=== PATIENT | male | born 1965 | race Caucasian/White ===

== ENCOUNTER 2016-09-22 16:36 | Emergency (ER) | payer OTHER ==
[~2016-09-22] VITALS: Ht 172.7 cm; Wt 83.9 kg
[~2016-09-22 16:36] MED LIST: ALPRAZOLAM1 M2 PO; DEXTROAMP-AMPHE20 MG PO
--- NOTE | 2016-09-22 17:05 | ED GENERAL ADULT ---
History of Present Illness General Chief Complaint: ETOH/Drug Related Complaint Stated Complaint: PT FOUND UNCONSCIOUS BY . OD ON HEROINE Source: patient, old records, EMS Exam Limitations: no limitations Vital Signs & Intake/Output Vital Signs & Intake/Output Vital Signs Date Time Temp Pulse Resp B/P Pulse O2 O2 Flow FiO2 Ox Delivery Rate 09/22 2021 95 20 138/78 97 Room Air 09/22 1746 Room Air 09/22 1638 98.3 115 20 123/59 94 Room Air Allergies Coded Allergies: Penicillins (Severe, TONGUE SWELLING 09/15/16) codeine (Intermediate, VOMITING 09/15/16) Reconcile Medications Alprazolam 1 MG TABLET 1 TAB PO TIDPRN ANXIETY (Reported) Dextroamphetamine/Amphetamine (Dextroamp-Amphetamin 20 MG Tab) 20 MG TABLET 1 TAB PO DAILY OCD (Reported) Triage Note: RECEIVED 51 YO MALE BIBA FROM HOME. PT WAS FOUND BY UNCONSCIOUS. CALLED POLICE/911. POLICE WERE ABLE TO ROUSE PT WHO ADMITTED TO TAKING A HALF A BAG OF HEROINE TODAY. NO NARCAN GIVEN. PT PRESENTLY AWAKE AND LAERT, ANSWERING QUESTIONAS APPROPRIATELY. PUPLILS PINPOINT BILAT. Triage Nurses Notes Reviewed? yes Onset: Abrupt Duration: day(s): (1), constant Timing: recent history Injury Environment: home Severity: moderate Severity Numbers: 5 No Modifying Factors: none Associated Symptoms: DENIES HPI: 51-year-old male presents to the emergency room brought in by [facility]. he was found unconscious by his . Police were able to arouse the patient without being given Narcan. On arrival the patient reports attempting to inject a half Vicodin heroine into his hand. The patient was seen here on last week after he overdosed and required Narcan at the time. He states she's been clean up until this time since April. Patient has a past history of substance abuse. Patient denies depression suicidal homicidal ideation. He denies any other drug or alcohol use. On arrival he denies any complaints. Patient declines wishing to speak with crisis Past History Travel History Traveled to [place] past 21 day No Medical History Any Pertinent Medical History? see below for history Neurological: NONE EENT: NONE Cardiovascular: NONE Respiratory: NONE Gastrointestinal: NONE Hepatic: NONE Renal: NONE Musculoskeletal: NONE Psychiatric: anxiety, opioid dependence, ADHD heroin overdose Endocrine: NONE Blood Disorders: NONE Cancer(s): NONE Tetanus Vaccine: Surgical History Surgical History: non-contributory Psychosocial History What is your primary language Latvian Tobacco Use: Current Daily Use Daily Tobacco Use Amount/Type: => 5 Cigarettes daily Illicit Drug Use: heroin Family History Hx Contributory? No Review of Systems Review of Systems Constitutional: Reports: see HPI. All Other Systems: Reviewed and Negative Comments Review of systems: See HPI, All other systems negative. Constitutional, no chills no fever, no malaise no weight loss HEENT: No visual changes no sore throat no congestion Cardiovascular: No chest pain , no palpitation Skin, no rashes, no change in skin Respiratory: No dyspnea no cough no sputum GI: No nausea no vomiting, no diarrhea, : No dysuria Muscle skeletal: No joint pain, no back pain, no neck pain, Neurologic: No numbness no confusion, no headache Psych: No stress no anxiety no depression,. Heme/endocrine: No bruising no bleeding Immunology: No lymphadenopathy Physical Exam Physical Exam General Appearance: well developed/nourished, no apparent distress, alert, awake Comments: Well-developed well-nourished person in no acute distress HEENT: Normal EENT exam; pupils pinpoint and reactive to light, EOMI, HEAD is atraumatic. moist mucous membranes. Neck: Supple, normal range of motion Back: Nontender, no CVA tenderness. Full range of motion Cardiovascular: Regular rate and rhythms no murmurs rubs Respiratory: Chest nontender.There were no bony deformities, no asymmetry. No respiratory distress. Patient speaking in full complete sentences. Breath sounds clear to auscultation bilaterally: NO W/R/R Abdomen: Soft, nontender nondistended, no appreciable organomegaly. Normal bowel sounds. No rebound/guarding, Extremity: No edema, full range of motion of extremities Neuro: Alert oriented x3, motor sensory normal. There were no obvious focal neurologic abnormalities. Skin: No appreciable rash on exposed skin, skin is warm and dry. Psych: Mood and affect is normal, memory and judgment is normal. Core Measures ACS in differential dx? No CVA/TIA Diagnosis: No Severe Sepsis Present: No Septic Shock Present: No Progress Differential Diagnoses I considered the following diagnoses in my evaluation of the patient: Intoxication and overdose electrode abnormality Plan of Care: Orders Procedure Date/time Status URINE DRUG SCREEN FOR ER ONLY 09/22 1705 Complete ETHANOL 09/22 170 Complete CBC WITHOUT DIFFERENTIAL 09/22 1704 Complete BASIC METABOLIC PANEL 09/22 170 Complete Laboratory Tests 09/22/16 1920: Urine Opiates Screen 1790.00, Methadone Screen > 735 H, Barbiturate Screen < 60 , Ur Phencyclidine Scrn < 6.00, Amphetamines Screen > 1450 H, U Benzodiazepines Scrn > 800 H, Urine Cocaine Screen < 50, Urine Cannabis Screen < 5.00 09/22/16 1742: Anion Gap 11, Estimated GFR > 60, BUN/Creatinine Ratio 12.0, Glucose 109 H, Calcium 9.1, CBC w Diff NO MAN DIFF REQ, RBC 5.03, MCV 82.1, MCH 27.8, RDW 13.6, MPV 7.9, Gran % 83.6 H, Lymphocytes % 11.0 L, Monocytes % 4.8, Eosinophils % 0.3, Basophils % 0.3, Absolute Granulocytes 13.4 H, Absolute Lymphocytes 1.8, Absolute Monocytes 0.8 H, Absolute Eosinophils 0.1, Absolute Basophils 0.1, PUBS MCHC 33.8, Serum Alcohol < 10.0 Patient awake alert and oriented 3 denies any symptoms. Discussed with and plan of care labs ordered old records reviewed. Patient is agreement with plan he is calm and cooperative at this time declining at this time to speak with crisis CASE D/W DR PANDYA 1800 FAMILY AT BEDSIDE ON REPEAT EVAL PT RESTING IN NAD, [facility] 09/22/2016 7:08:43 PM patient awake alert oriented 3 resting comfortably discussed with them at length of his lab results hemodynamically stable. We'll continue to monitor 09/22/2016 8:17:33 PM patient walking around ER steady stable gait. His family will watch him this evening a PLAN discussed initially began all of his lab results. Case was discussed with Dr. Bower. They'll feel comfortable plan he states he is going to follow-up with the rehabilitation that he's been in before in [place] tomorrow to get help. He is not suicidal, does not wish to spaek with crisis, ambulatory with steady gait on discharge (SUSANNE SAWYER,OBI) Initial ED EKG: none Departure Departure Time of Disposition: 2025 Disposition: HOME OR SELF CARE Condition: Stable Clinical Impression Primary Impression: Opiate abuse, episodic Secondary Impressions: Amphetamine abuse, Benzodiazepine abuse Referrals: PAPO CASEY MD (PCP/Family) Referred to [facility] as new patient No Additional Instructions: FOLLOW UP WITH DETOX LIST PROVIDED. Departure Forms: Customer Survey General Discharge Information Critical Care Note Critical Care Note Critical Care Time: non-applicable
[2016-09-22 17:48] LABS: ABSOLUTE BASOPHIL COUNT 0.1 /CUMM (0.0-0.2); ABSOLUTE EOSINOPHIL COUNT 0.1 /CUMM (0.0-0.7); ABSOLUTE GRANULOCYTE CT 13.4 /CUMM (1.4-6.5); ABSOLUTE LYMPH COUNT 1.8 /CUMM (1.2-3.4); ABSOLUTE MONOCYTE COUNT 0.8 /CUMM (0.10-0.60); BASOPHIL % 0.3 % (0.0-2.0); EOSINOPHIL % 0.3 % (0-5); GRANULOCYTE % 83.6 % (42.2-75.2); HEMATOCRIT 41.3 % (42-52); MEAN CORPUSCULAR HGB 27.8 PG (27.0-31.0); MEAN CORPUSCULAR HGB CONC 33.8 G/DL (33.0-37.0); MEAN CORPUSCULAR VOLUME 82.1 FL (80.0-94.0); MEAN PLATELET VOLUME 7.9 FL (7.4-10.4); PLATELET COUNT 296 /CUMM (130-400); RBC DISTRIBUTION WIDTH 13.6 % (11.5-14.5); RED BLOOD CELL CT 5.03 /CUMM (4.70-6.10)
[2016-09-22 20:22] VITALS: BP 138/78
== END 2016-09-22 20:23 ==
LOC: ERH 16:36
PROVIDERS: Physician Assistant Medical
DX: F11.10 Opioid abuse, uncomplicated (principal); F15.10 Other stimulant abuse, uncomplicated; F13.10 Sedative, hypnotic or anxiolytic abuse, uncomplicated
CPT/HCPCS: 80307; G0480

== ENCOUNTER 2016-10-02 16:44 | Emergency (ER) | payer OTHER ==
[~2016-10-02] VITALS: Ht 172.7 cm; Wt 83.9 kg
--- NOTE | 2016-10-02 16:51 | ED PSYCHIATRIC COMPLAINT ---
History of Present Illness General Chief Complaint: ETOH/Drug Related Complaint Stated Complaint: FOUND UNRESPONSIVE BY [facility] RESPONDED WITH NARCAN Source: patient, old records, EMS Exam Limitations: no limitations Vital Signs & Intake/Output Vital Signs & Intake/Output Vital Signs Date Time Temp Pulse Resp B/P Pulse O2 O2 Flow FiO2 Ox Delivery Rate 10/02 1912 98.6 86 18 126/84 98 Room Air 10/02 1657 98.8 101 20 147/77 96 Room Air Allergies Coded Allergies: Penicillins (Severe, TONGUE SWELLING 09/15/16) codeine (Intermediate, VOMITING 09/15/16) Reconcile Medications Alprazolam 1 MG TABLET 1 TAB PO TIDPRN ANXIETY (Reported) Dextroamphetamine/Amphetamine (Dextroamp-Amphetamin 20 MG Tab) 20 MG TABLET 1 TAB PO DAILY OCD (Reported) Triage Nurses Notes Reviewed? yes Onset: Abrupt Duration: minute(s): (FEW) Timing: single episode today Severity: severe HPI: This is a 51-year-old male presents by EMS from home for chief complaint of unresponsive after using IV heroin. He was given 2 doses of intranasal Narcan without relief and then had a dose of IV Narcan with good improvement. History of multiple overdoses in the last few weeks. Denies feeling suicidal. He states that just needed to go away for rehabilitation again. Denies using any other drugs. Denies any alcohol. He is awake alert and oriented 3. Oxygen saturation is 95%. He is a one pack per day smoker. He states his last detox was in 2017 years ago. Past History Travel History Traveled to [place] past 21 day No Medical History Any Pertinent Medical History? see below for history Neurological: NONE EENT: NONE Cardiovascular: NONE Respiratory: NONE Gastrointestinal: NONE Hepatic: NONE Renal: NONE Musculoskeletal: NONE Psychiatric: anxiety, opioid dependence, ADHD heroin overdose Endocrine: NONE Blood Disorders: NONE Cancer(s): NONE Tetanus Vaccine: Surgical History Surgical History: non-contributory Psychosocial History What is your primary language Swiss Family History Hx Contributory? No Review of Systems Review of Systems Constitutional: Denies: chills, fever. EENTM: Reports: no symptoms. Respiratory: Denies: cough, short of breath. Cardiovascular: Denies: chest pain, palpitations, peripheral edema. GI: Denies: abdominal pain. Genitourinary: Reports: no symptoms. Musculoskeletal: Reports: no symptoms. Skin: Reports: no symptoms. Neurological/Psychological: Reports: anxiety. Denies: confusion, depressed, headache. Hematologic/Endocrine: Denies: bruising, bleeding, polyuria, polydipsia. Immunologic/Allergic: Denies: splenectomy. All Other Systems: Reviewed and Negative Physical Exam Physical Exam General Appearance: well developed/nourished, alert, awake, mild distress Head: atraumatic Eyes: Bilateral: PERRL, EOMI. Ears, Nose, Throat: normal pharynx, normal ENT inspection, hearing grossly normal Neck: normal inspection, supple Respiratory: normal breath sounds Cardiovascular: regular rate/rhythm Gastrointestinal: soft, non-tender Extremities: normal range of motion Neurological/Psychiatric: no motor/sensory deficits, awake, agitated, normal mood/affect, calm Appearance/Memory/Insight: appropriate insight, neat Behavoir/Eye Contact/Speech: cooperative, normal speech, good eye contact Thoughts/Hallucinations: no apparent hallucination Skin: intact, normal color, warm/dry SAD PERSONS Done? patient not suicidal Progress Differential Diagnosis: HEROIN ABUSE, OPIATE DEPENDENCE Plan of Care: Orders Procedure Date/time Status Telemetry/[employer] 10/02 165 Active NARCAN GIVEN IN FIELD WITH GOOD EFFECT. WILL CONTINUE TO MONITOR, IV FLUIDS ORDERED. 6:15 PM FEELS WELL, NO HYPOXIA. WILL FOLLOW UP WITH OUTPATIENT DETOX FACILITIES. NO SI. (YA PATEL,SOLANGE) Departure Departure Time of Disposition: 1844 Disposition: HOME OR SELF CARE Condition: Stable Clinical Impression Primary Impression: Heroin overdose Referrals: PAPO CASEY MD (PCP/Family) Additional Instructions: Follow-up with list of outpatient detox facilities as well as with [facility] as you intended. Return as needed. Departure Forms: Customer Survey General Discharge Information
[2016-10-02 19:13] VITALS: BP 126/84
== END 2016-10-02 19:12 ==
LOC: ERH 16:44
DX: T40.1X1A Poisoning by heroin, accidental (unintentional), initial encounter (principal)

== ENCOUNTER 2016-12-10 14:02 | Emergency (ER) | payer OTHER ==
[~2016-12-10] VITALS: Ht 172.7 cm; Wt 83.9 kg
--- NOTE | 2016-12-10 14:18 | ED PSYCHIATRIC COMPLAINT ---
History of Present Illness General Chief Complaint: ETOH/Drug Related Complaint Stated Complaint: BIBA ?OD Source: patient, EMS Exam Limitations: no limitations Vital Signs & Intake/Output Vital Signs & Intake/Output Vital Signs Date Time Temp Pulse Resp B/P Pulse O2 O2 Flow FiO2 Ox Delivery Rate 12/10 1700 96.2 72 18 128/75 95 Room Air 12/10 1404 98.0 90 16 140/83 96 Room Air ED Intake and Output 12/11 0000 12/10 1200 Intake Total Output Total Balance Patient 185 lb Weight Allergies Coded Allergies: Penicillins (Severe, TONGUE SWELLING 09/15/16) codeine (Intermediate, VOMITING 09/15/16) Reconcile Medications Alprazolam 1 MG TABLET 1 TAB PO TIDPRN ANXIETY (Reported) Dextroamphetamine/Amphetamine (Dextroamp-Amphetamin 20 MG Tab) 20 MG TABLET 1 TAB PO DAILY OCD (Reported) Triage Note: BIBA FROM HOME, PER EMS, FOUND PT UNRESPONSIVENE AFTER HE INJECTED HIMSELF WITH 1 BAG OF HEROIN. WAS GIVEN 2 MG NARCAN BY PD, ANOTHER 2 MG IM BY EMS. PRESENTLY AWAKE, NO RESPIRATORY DISTRESS. STATES THIS WAS THE FIRST TIME HE USED HEROIN SINCE QUITTING IN SEPTEMBER OF 2016. CO-OPERATIVE. PLACED ON MONITOR, SR. Triage Nurses Notes Reviewed? yes Onset: Abrupt Duration: minute(s): (few) Timing: single episode today Severity: severe HPI: 51 year-old brought in by EMS after being found unresponsive by . He admitted to injecting 1 bag of heroin. He was given 2 doses of Narcan in the field with good effect. Now presents awake alert and oriented. Last used in September and he states he detoxed himself. No SI/HI. He states he used because he "likes it". Denies any other substance use. Past History Travel History Traveled to [place] past 21 day No Medical History Any Pertinent Medical History? see below for history Neurological: NONE EENT: NONE Cardiovascular: NONE Respiratory: NONE Gastrointestinal: NONE Hepatic: NONE Renal: NONE Musculoskeletal: NONE Psychiatric: anxiety, opioid dependence, ADHD heroin overdose-multipe Endocrine: NONE Blood Disorders: NONE Cancer(s): NONE Tetanus Vaccine: Surgical History Surgical History: non-contributory Psychosocial History What is your primary language Hungarian Tobacco Use: Current Daily Use Daily Tobacco Use Amount/Type: => 5 Cigarettes daily ETOH Use: occasional use Family History Hx Contributory? No Review of Systems Review of Systems Constitutional: Denies: chills, fever. EENTM: Reports: no symptoms. Respiratory: Denies: cough, short of breath. Cardiovascular: Denies: chest pain. GI: Denies: abdominal pain. Genitourinary: Reports: no symptoms. Musculoskeletal: Reports: no symptoms. Skin: Reports: no symptoms. Neurological/Psychological: Reports: emotional problems. Denies: anxiety, confusion. Hematologic/Endocrine: Denies: bruising, bleeding, polyuria, polydipsia. Immunologic/Allergic: Denies: splenectomy. All Other Systems: Reviewed and Negative Physical Exam Physical Exam General Appearance: well developed/nourished, mild distress Head: atraumatic Eyes: Bilateral: PERRL, EOMI, other (PUPILS 2/3 MM BILATERAL). Ears, Nose, Throat: normal pharynx, normal ENT inspection, hearing grossly normal Neck: normal inspection, supple Respiratory: normal breath sounds Cardiovascular: regular rate/rhythm Gastrointestinal: soft, non-tender Extremities: normal range of motion Neurological/Psychiatric: no motor/sensory deficits, awake, alert Appearance/Memory/Insight: appropriate appearance, neat Behavoir/Eye Contact/Speech: cooperative, normal speech, good eye contact Thoughts/Hallucinations: no apparent hallucination Skin: intact, normal color, warm/dry SAD PERSONS Done? patient not suicidal Progress Differential Diagnosis: HEROIN OVERDOSE, OPIATE DEPENDENCE Plan of Care: Laboratory Tests 12/10/16 1429: Methadone Screen Cancelled, Barbiturate Screen Cancelled, Ur Phencyclidine Scrn Cancelled, Amphetamines Screen Cancelled, U Benzodiazepines Scrn Cancelled, Urine Cocaine Screen Cancelled, Urine Cannabis Screen Cancelled Patient observed for 3 hours. No increased sedation. Patient denies SI/HI. Will discharge for outpatient detox. (YA PATEL,SOL[place]) Departure Departure Disposition: HOME OR SELF CARE Condition: Stable Clinical Impression Primary Impression: Heroin overdose Referrals: PAPO CASEY MD (PCP/Family) Additional Instructions: Follow up with the list of outpatient detox facilities. Departure Forms: Customer Survey General Discharge Information
[2016-12-10 17:00] VITALS: BP 128/75
== END 2016-12-10 17:15 ==
LOC: ERH 14:02
DX: T40.1X1A Poisoning by heroin, accidental (unintentional), initial encounter (principal)
CPT/HCPCS: 80307

== ENCOUNTER 2017-01-20 08:36 | Emergency (ER) | payer OTHER ==
[~2017-01-20] VITALS: Ht 172.7 cm; Wt 85.7 kg
--- NOTE | 2017-01-20 09:05 | ED NECK/BACK PAIN COMPLAINT ---
History of Present Illness General Chief Complaint: Abdominal Pain/Flank Pain Stated Complaint: R SIDED BACK/FLANK Source: patient Exam Limitations: no limitations Vital Signs & Intake/Output Vital Signs & Intake/Output Vital Signs Date Time Temp Pulse Resp B/P B/P Pulse O2 O2 Flow FiO2 Mean Ox Delivery Rate 01/20 1228 97.9 74 18 146/70 98 Room Air 01/20 1025 98.2 80 18 151/85 98 01/20 0847 97.7 89 20 141/87 95 Room Air Allergies Coded Allergies: Penicillins (Severe, TONGUE SWELLING 09/15/16) codeine (Intermediate, VOMITING 09/15/16) Reconcile Medications Alprazolam 1 MG TABLET 1 TAB PO TIDPRN ANXIETY (Reported) Cyclobenzaprine HCl 10 MG TABLET 1 TAB PO TID SPASMS Dextroamphetamine/Amphetamine (Dextroamp-Amphetamin 20 MG Tab) 20 MG TABLET 1 TAB PO QPM OCD (Reported) Meloxicam (Mobic) 15 MG TABLET 1 TAB PO DAILY pain Triage Note: C/O RIGHT SIDED BACK SPASMS SINCE FRIDAY STATES PAIN IS RADIATING INTO RIGHT KIDNEY AREA. STATES HX OF KIDNEY STONE AND THIS FEELS LIKE THAT Triage Nurses Notes Reviewed? yes Onset: Abrupt Duration: day(s): (FEW), constant, continues in ED Timing: recent history Quality/Severity: moderate, severe Method of Injury: unknown Loss of Consciousness: no loss of consciousness HPI: 51-year-old male comes into emergency room with complaints of right-sided back pain is been going on for the past 3 days. Sharp. Worse with any range of motion. Some associated abdominal pain. Denies any changes in bowel movement. Denies any fever chills vomiting. There is no complaints of chest pain or shortness of breath. Patient does admit to a history of heroin use. He reports that he did sniff A Percocet 3 days ago because the pain was so severe. Denies any urinary symptoms or prior history of pain like this in the past. History of lumbar fusion. Denies any abdominal surgeries. (JAY GILES) Past History Travel History Traveled to [place] past 21 day No Medical History Any Pertinent Medical History? see below for history Neurological: NONE EENT: NONE Cardiovascular: NONE Respiratory: NONE Gastrointestinal: NONE Hepatic: NONE Renal: NONE Musculoskeletal: NONE Psychiatric: anxiety, opioid dependence, ADHD heroin overdose-multipe Endocrine: NONE Blood Disorders: NONE Cancer(s): NONE Tetanus Vaccine: Surgical History Surgical History: spinal fusion (LUMBAR) Psychosocial History What is your primary language Turkish Tobacco Use: Current Daily Use Daily Tobacco Use Amount/Type: => 5 Cigarettes daily ETOH Use: occasional use Illicit Drug Use: denies illicit drug use Family History Hx Contributory? No (JAY GILES) Review of Systems Review of Systems Constitutional: Reports: no symptoms. Eyes: Reports: no symptoms. Ears, Nose, Throat, Mouth: Reports: no symptoms. Respiratory: Reports: no symptoms. Cardiovascular: Reports: no symptoms. Gastrointestinal/Abdominal: Reports: no symptoms. Musculoskeletal: Reports: see HPI. Skin: Reports: no symptoms. Neurological/Psychological: Reports: no symptoms. All Other Systems: Reviewed and Negative (JAY GILES) Physical Exam Physical Exam General Appearance: well developed/nourished, mild distress Head: atraumatic Eyes: Bilateral: normal appearance. Ears, Nose, Throat, Mouth: hearing grossly normal, moist mucous membrane Neck: normal inspection, full range of motion Respiratory: normal breath sounds, no respiratory distress Cardiovascular: regular rate/rhythm Gastrointestinal: soft, non-tender Back: normal inspection, muscle spasm Extremities: normal range of motion Motor: Deficit L4 Right: No Deficit L4 Left: No Deficit L5 Right: No Deficit L5 Left: No Deficit S1 Right: No Neurologic/Psych: awake, alert, oriented x 3, normal mood/affect Skin: intact, normal color, warm/dry (JAY GILES) Progress Differential Diagnosis: AAA, aortic dissection, C spine injury, carotid dissection, cauda equina syn, herniated disc, myofascial strain, pyelo/UTI, sciatica, spinal cord inj, thoracic outlet syn, T/L spine injury, ureterolithiasis, CHOLECYSTITIS Plan of Care: Orders Procedure Date/time Status URINALYSIS 01/20 900 Complete LIPASE 01/20 900 Complete COMPREHENSIVE METABOLIC PANEL 01/20 900 Complete CBC WITHOUT DIFFERENTIAL 01/20 900 Complete Laboratory Tests 01/20/17 1101: Urinalysis LIGHT H, Urine Color YEL, Urine Clarity CLDY H, Urine pH 6.0, Ur Specific [place] 1.025, Urine Protein TRACE H, Urine Ketones NEG, Urine Nitrite NEG, Urine Bilirubin NEG@ICTO, Urine Urobilinogen 0.2, Ur Leukocyte Esterase NEG , Ur Microscopic SEDIMENT EXAMINED, Urine RBC 5-10 H, Urine WBC 1-3 H, Ur Epithelial Cells RARE, Urine Bacteria FEW H, Granular Casts RARE H, Urine Mucus MANY H, Urine Hemoglobin MOD H, Urine Glucose NEG 01/20/17 0909: Anion Gap 12, Estimated GFR > 60, BUN/Creatinine Ratio 12.5, Glucose 123 H, Calcium 9.9, Total Bilirubin 0.9, AST 19, ALT 23, Alkaline Phosphatase 71, Total Protein 7.9, Albumin 4.5, Globulin 3.4, Albumin/Globulin Ratio 1.3, Lipase 74, CBC w Diff NO MAN DIFF REQ, RBC 5.36, MCV 83.0, MCH 27.8, RDW 13.5, MPV 8.7, Gran % 82.3 H, Lymphocytes % 10.9 L, Monocytes % 6.2, Eosinophils % 0.2, Basophils % 0.4, Absolute Granulocytes 12.1 H, Absolute Lymphocytes 1.6, Absolute Monocytes 0.9 H, Absolute Eosinophils 0, Absolute Basophils 0.1, PUBS MCHC 33.5 Diagnostic Imaging: Viewed by Me: CT Scan. Discussed w/RAD: CT Scan. Radiology Impression: SERVICE DATE: 01/20/17 EXAM TYPE: CAT - CT ABD & PELVIS W/O IV CONTRAS EXAMINATION: CT ABDOMEN AND PELVIS WITHOUT CONTRAST CLINICAL INFORMATION: Right flank pain COMPARISON: October 282005 CT scan TECHNIQUE: Multidetector volumetric imaging was performed from the superior aspect of the liver through the pubic symphysis. Sagittal and coronal reformatted images were obtained on the technologist's workstation. DLP: 373.47 mGy-cm FINDINGS: LUNG BASES: There are linear densities at the posterior lung bases, right more than left which could represent atelectasis versus a scar. LIVER, GALLBLADDER, AND BILIARY TREE: The noncontrast images of abdomen demonstrate the liver is normal in size and parenchymal density without intrahepatic biliary ductal dilatation or hepatic focal lesion. The gallbladder is contracted. PANCREAS: Unremarkable. SPLEEN: Unremarkable. ADRENAL GLANDS: Unremarkable. KIDNEYS AND URETERS: The kidneys are normal in size, shape, and attenuation. No hydronephrosis, hydroureter, or calculi seen. No perinephric stranding. BLADDER: The urinary bladder is partially full. No bladder stone. No perivesical fat stranding. GASTROINTESTINAL TRACT: The stomach, duodenum, small and large bowel are unremarkable. The appendix is visualized. The appendix measures about 7 mm in diameter, upper normal limits. The lumen of the appendix contains fluid density. No appendicolith is seen. No periappendiceal inflammatory changes to suggest acute appendicitis. ABDOMINAL WALL: No significant hernia is appreciated. LYMPH NODES: Normal. VASCULAR: Unremarkable. PELVIC VISCERA: The prostate and seminal vesicles are unremarkable. OSSEOUS STRUCTURES: Degenerative changes at L4-L5 intervertebral disc space level with sclerotic changes of the adjacent endplates and vacuum disc phenomenon and posterior disc bulge noted. IMPRESSION: 1. No urinary stone. No hydronephrosis. 2. Contracted gallbladder without radiodense gallstones. 3. No CT evidence of acute appendicitis. Clinical correlation advised. DICTATED BY: DONTA ALBARRAN MD DATE/TIME DICTATED:01/20/17932 TRUCK GUARD:TERA DATE/TIME TRANSCRIBED:01/20/17932 (JAY GILES) Departure Departure Disposition: HOME OR SELF CARE Condition: Stable Clinical Impression Primary Impression: Back pain Referrals: PATIENT HAS NO PRIMARY CARE DR (PCP/Family) Additional Instructions: Taking Mobic and Flexeril as prescribed. Follow-up with primary care doctor. Return if any concerns worsening symptoms. Please go over all results of today's visit with your primary care doctor. Contact your primary care doctor to let them know you were here in the emergency room. There may be nonspecific findings which may not be related to your visit today here in the emergency room but may require further evaluation and chronic monitoring by your primary care doctor. If you had a laceration today the chance of foreign body always remains. You should follow-up with your primary care doctor for recheck in 3-5 days for a wound check. If you had an x-ray done there is a chance that a fracture could have been missed on initial read and you should follow-up with your primary care doctor for repeat x-rays if symptoms persist. If your blood pressure was elevated here in the emergency room please have rechecked by her primary care doctor within the next 48 hours by your primary care doctor. If you were prescribed a narcotic here in the emergency room or any type of controlled substances you're not allowed to drive while taking this medication or operate any type of heavy machinery. Narcotics can make you feel lightheaded dizziness nausea and can cause constipation. You may need to pickup driver a stool softener. Thank you for choosing [facility] emergency room. Please return to the emergency room immediately if you have any other concerns worsening of symptoms. Departure Forms: Customer Survey General Discharge Information Prescriptions: Current Visit Scripts Meloxicam (Mobic) 1 TAB PO DAILY #15 TAB Cyclobenzaprine HCl 1 TAB PO TID #20 TAB Comments 01/20/2017 1:58:00 PM Patient feels better after medications here. There is no acute findings. Patient was told to go over results with his primary care doctor. Return if any concerns. Pain is likely more consistent with musculoskeletal pain. Possibility of a passed kidney stone is also something to consider. At this time patient has been resting comfortably in no apparent distress in the room. Pain is worse with range of motion as well making IT more consistent with muscular pain. (JAY GILES) PA/SUPERINTENDENT REFUSE DISPOSAL Co-Sign Statement Statement: ED Attending supervision documentation- [] I saw and evaluated the patient. I have also reviewed all the pertinent lab results and diagnostic results. I agree with the findings and the plan of care as documented in the PA's/SUPERINTENDENT REFUSE DISPOSAL's documentation. X] I have reviewed the ED Record and agree with the PA's/SUPERINTENDENT REFUSE DISPOSAL's documentation. [] Additions or exceptions (if any) to the PAs/SUPERINTENDENT REFUSE DISPOSAL's note and plan are summarized below: [] (FAVIO SAMANIEGO DO
[2017-01-20 09:27] LABS: ABSOLUTE BASOPHIL COUNT 0.1 /CUMM (0.0-0.2); ABSOLUTE EOSINOPHIL COUNT 0 /CUMM (0.0-0.7); ABSOLUTE GRANULOCYTE CT 12.1 /CUMM (1.4-6.5); ABSOLUTE LYMPH COUNT 1.6 /CUMM (1.2-3.4); ABSOLUTE MONOCYTE COUNT 0.9 /CUMM (0.10-0.60); BASOPHIL % 0.4 % (0.0-2.0); EOSINOPHIL % 0.2 % (0-5); GRANULOCYTE % 82.3 % (42.2-75.2); HEMATOCRIT 44.5 % (42-52); MEAN CORPUSCULAR HGB 27.8 PG (27.0-31.0); MEAN CORPUSCULAR HGB CONC 33.5 G/DL (33.0-37.0); MEAN PLATELET VOLUME 8.7 FL (7.4-10.4); PLATELET COUNT 260 /CUMM (130-400); RBC DISTRIBUTION WIDTH 13.5 % (11.5-14.5); RED BLOOD CELL CT 5.36 /CUMM (4.70-6.10); WHITE BLOOD CELL COUNT 14.7 /CUMM (4.8-10.8)
--- NOTE | 2017-01-20 09:49 | CT SCAN REPORT ---
EXAMINATION: CT ABDOMEN AND PELVIS WITHOUT CONTRAST CLINICAL INFORMATION: Right flank pain COMPARISON: October 282005 CT scan TECHNIQUE: Multidetector volumetric imaging was performed from the superior aspect of the liver through the pubic symphysis. Sagittal and coronal reformatted images were obtained on the technologist's workstation. DLP: 373.47 mGy-cm FINDINGS: LUNG BASES: There are linear densities at the posterior lung bases, right more than left which could represent atelectasis versus a scar. LIVER, GALLBLADDER, AND BILIARY TREE: The noncontrast images of abdomen demonstrate the liver is normal in size and parenchymal density without intrahepatic biliary ductal dilatation or hepatic focal lesion. The gallbladder is contracted. PANCREAS: Unremarkable. SPLEEN: Unremarkable. ADRENAL GLANDS: Unremarkable. KIDNEYS AND URETERS: The kidneys are normal in size, shape, and attenuation. No hydronephrosis, hydroureter, or calculi seen. No perinephric stranding. BLADDER: The urinary bladder is partially full. No bladder stone. No perivesical fat stranding. GASTROINTESTINAL TRACT: The stomach, duodenum, small and large bowel are unremarkable. The appendix is visualized. The appendix measures about 7 mm in diameter, upper normal limits. The lumen of the appendix contains fluid density. No appendicolith is seen. No periappendiceal inflammatory changes to suggest acute appendicitis. ABDOMINAL WALL: No significant hernia is appreciated. LYMPH NODES: Normal. VASCULAR: Unremarkable. PELVIC VISCERA: The prostate and seminal vesicles are unremarkable. OSSEOUS STRUCTURES: Degenerative changes at L4-L5 intervertebral disc space level with sclerotic changes of the adjacent endplates and vacuum disc phenomenon and posterior disc bulge noted. IMPRESSION: 1. No urinary stone. No hydronephrosis. 2. Contracted gallbladder without radiodense gallstones. 3. No CT evidence of acute appendicitis. Clinical correlation advised.
[2017-01-20] MEDS ORDERED: CYCLOBENZAPRINE10 M1 PO (11:31)
[2017-01-20] MEDS ORDERED: MOBIC15 M1 PO (11:31)
[2017-01-20 12:28] VITALS: BP 146/70
== END 2017-01-20 12:28 ==
LOC: ERH 08:36
PROVIDERS: Physician Assistant Medical
DX: M54.9 Dorsalgia, unspecified (principal)
CPT/HCPCS: 74176; 81001; 96372; J1885

== ENCOUNTER 2017-02-26 16:18 | Inpatient (IN) | payer OTHER ==
[~2017-02-26] VITALS: Ht 172.7 cm; Wt 81.6 kg
[~2017-02-26 16:18] MED LIST changes: +CYCLOBENZAPRINE10 M1 PO; +MOBIC15 M1 PO
--- NOTE | 2017-02-26 16:35 | NUR ---
PT COMPLAINS OF 2 WEEKS OF BILATERAL FLANK PAIN AND ABD PAIN, STATES THAT HE HAS EPISODES OF CONSTIPATION , TOOK MEDS AND MOVED HIS BOWELS BUT STATES THAT IT WAS LOOSE. DENIES N/V. AFEBRILE.
--- NOTE | 2017-02-26 16:47 | NUR ---
LABS DRAWN AND SENT BY THIS [facility] BLUE, SST, LAV, PINK, PINA
[2017-02-26 16:51] LABS: ABSOLUTE BASOPHIL COUNT 0 /CUMM (0.0-0.2); ABSOLUTE EOSINOPHIL COUNT 0.1 /CUMM (0.0-0.7); ABSOLUTE GRANULOCYTE CT 9.3 /CUMM (1.4-6.5); ABSOLUTE LYMPH COUNT 2.7 /CUMM (1.2-3.4); ABSOLUTE MONOCYTE COUNT 0.9 /CUMM (0.10-0.60); BASOPHIL % 0.4 % (0.0-2.0); EOSINOPHIL % 0.9 % (0-5); GRANULOCYTE % 71.3 % (42.2-75.2); HEMATOCRIT 39.2 % (42-52); MEAN CORPUSCULAR HGB CONC 32.5 G/DL (33.0-37.0); MEAN CORPUSCULAR VOLUME 80.1 FL (80.0-94.0); MEAN PLATELET VOLUME 7.4 FL (7.4-10.4); PLATELET COUNT 395 /CUMM (130-400); RBC DISTRIBUTION WIDTH 13.3 % (11.5-14.5); WHITE BLOOD CELL COUNT 13.1 /CUMM (4.8-10.8)
[2017-02-26] MEDS ORDERED: OXYCODONE HCL30 M1 PO (17:31)
[2017-02-26] MEDS ORDERED: ALEVE220 M2 PO (17:32)
--- NOTE | 2017-02-26 17:36 | ED GENERAL ADULT ---
History of Present Illness General Chief Complaint: Abdominal Pain/Flank Pain Stated Complaint: ABD PAIN Source: patient Exam Limitations: no limitations Vital Signs & Intake/Output Vital Signs & Intake/Output Vital Signs Date Time Temp Pulse Resp B/P B/P Pulse O2 O2 Flow FiO2 Mean Ox Delivery Rate 02/26 1632 97.1 102 18 130/83 98 Room Air Allergies Coded Allergies: Penicillins (Severe, TONGUE SWELLING 09/15/16) codeine (Intermediate, VOMITING 09/15/16) Reconcile Medications Alprazolam 1 MG TABLET 1 TAB PO TIDPRN ANXIETY (Reported) Dextroamphetamine/Amphetamine (Dextroamp-Amphetamin 20 MG Tab) 20 MG TABLET 1 TAB PO QPM OCD/ADHD (Reported) Naproxen Sodium (Aleve) 220 MG TABLET 1 TAB PO DAILY PAIN (Reported) Oxycodone HCl 30 MG TABLET 1 TAB PO ONCE PAIN (Reported) Triage Note: PT COMPLAINS OF 2 WEEKS OF BILATERAL FLANK PAIN AND ABD PAIN, STATES THAT HE HAS EPISODES OF CONSTIPATION , TOOK MEDS AND MOVED HIS BOWELS BUT STATES THAT IT WAS LOOSE. DENIES N/V. AFEBRILE. Triage Nurses Notes Reviewed? yes Onset: Abrupt Duration: day(s): Timing: recent history HPI: PATIENT TREATED WITH IVF, IV TORADOL, IV ZOFRAN 51-year-old man presents to the emergency department complaining of right sided back pain. He says he had the pain for several weeks but it's become intense over the last 72 hours. He denies lower extremity weakness or fever. He also says the pain is radiating to the right side of his abdomen now. He does admit to intravenous drug use but has not used for the past 3 weeks. The onset of the symptoms have been abrupt, the duration has been approximately 2 weeks, the severity is significant as his symptoms required him to come to the emergency department for care. Past History Travel History Traveled to [place] past 21 day No Medical History Any Pertinent Medical History? see below for history Neurological: NONE EENT: NONE Cardiovascular: NONE Respiratory: NONE Gastrointestinal: NONE Hepatic: NONE Renal: NONE Musculoskeletal: NONE Psychiatric: anxiety, opioid dependence, ADHD heroin overdose-multipe Endocrine: NONE Blood Disorders: NONE Cancer(s): NONE Tetanus Vaccine: Surgical History Surgical History: spinal fusion (LUMBAR) Psychosocial History What is your primary language Micronesian Tobacco Use: Current Daily Use Daily Tobacco Use Amount/Type: => 5 Cigarettes daily ETOH Use: denies use Illicit Drug Use: denies illicit drug use Family History Hx Contributory? No Review of Systems Review of Systems Constitutional: Denies: fever. EENTM: Denies: visual changes. Respiratory: Denies: short of breath. Cardiovascular: Denies: chest pain. GI: Reports: abdominal pain. Genitourinary: Reports: no symptoms. Musculoskeletal: Reports: back pain. Skin: Denies: rash. Neurological/Psychological: Denies: headache. Hematologic/Endocrine: Reports: no symptoms. Immunologic/Allergic: Reports: no symptoms. Physical Exam Physical Exam General Appearance: well developed/nourished, alert, awake, comfortable, mild distress Head: atraumatic, normal appearance Eyes: Bilateral: normal appearance, PERRL, EOMI. Ears, Nose, Throat: normal pharynx, normal ENT inspection Neck: normal inspection, supple, full range of motion Respiratory: normal breath sounds, chest non-tender, no respiratory distress Cardiovascular: regular rate/rhythm Peripheral Pulses: 4+ radial (R), 4+ radial (L) Gastrointestinal: soft, tenderness Back: normal inspection, muscle spasm, mild rightright sided paralumbar tenderness. Thoracic vertebral tenderness at around T12. Extremities: normal inspection, normal range of motion Neurologic/Psych: no motor/sensory deficits, awake, alert, oriented x 3 Skin: intact, normal color, warm/dry Core Measures ACS in differential dx? No CVA/TIA Diagnosis: No Severe Sepsis Present: No Septic Shock Present: No Progress Differential Diagnoses I considered the following diagnoses in my evaluation of the patient: [Kidney stone, gallstone, diverticulitis, pneumonia] Plan of Care: Orders Procedure Date/time Status Regular Diet 02/27 B Active MRI-THORACIC W & W/O WILLOW 02/27 07 Active CBC WITHOUT DIFFERENTIAL 02/27 06 Active Pathway - chart 02/26 223 Active House Staff 02/27 2232 Active PHYSICIAN CONSULT 02/27 2232 Active Hemoccult 02/26 222 Active Patient Data 02/26 215 Active Admit to inpatient 02/26 2129 Active Vital Signs 02/26 2129 Active Code Status 02/26 2129 Active LACTIC ACID 02/26 1936 Complete URINALYSIS 02/26 1636 Active LACTIC ACID 02/26 1636 Complete COMPREHENSIVE METABOLIC PANEL 02/26 1636 Complete CBC WITHOUT DIFFERENTIAL 02/26 1636 Complete VTE Mechanical Prophylaxis 02/26 UNK Active Current Medications Sig/Niru Start time Last Medication Dose Stop Time Status Admin Polyethylene Glycol 17 GM DAILY 02/27 1000 UNVr (Miralax) Heparin Sodium 5,000 UNIT Q8 02/27 06 UNVr (Porcine) Acetaminophen 650 MG Q6P PRN 02/26 2245 UNVr (Tylenol) Ibuprofen 600 MG Q6P PRN 02/26 2245 UNVr (Motrin) Ketorolac 15 MG Q6P PRN 02/26 224 UNVr Tromethamine (Toradol) Senna/Docusate Sodium 1 TAB BID 02/26 2230 UNVr (Senokot S) Laboratory Tests 02/26/172233: Urine Color Pending, Urine Clarity Pending, Urine pH Pending, Ur Specific [place] Pending, Urine Protein Pending, Urine Ketones Pending, Urine Nitrite Pending, Urine Bilirubin Pending, Urine Urobilinogen Pending, Ur Leukocyte Esterase Pending, Ur Microscopic Pending, Urine Hemoglobin Pending, Urine Glucose Pending 02/26/172041: Lactic Acid 1.0 02/26/17 1644: Anion Gap 13, Estimated GFR > 60, BUN/Creatinine Ratio 13.3, Glucose 97, Lactic Acid 0.7, Calcium 10.3 H, Total Bilirubin 0.7, AST 17, ALT 30, Alkaline Phosphatase 93, Total Protein 7.5, Albumin 3.9, Globulin 3.6, Albumin/Globulin Ratio 1.1, CBC w Diff NO MAN DIFF REQ, RBC 4.90, MCV 80.1, MCH 26.0 L, RDW 13.3 , MPV 7.4, Gran % 71.3, Lymphocytes % 20.4 L, Monocytes % 7.0, Eosinophils % 0.9, Basophils % 0.4, Absolute Granulocytes 9.3 H, Absolute Lymphocytes 2.7, Absolute Monocytes 0.9 H, Absolute Eosinophils 0.1, Absolute Basophils 0, PUBS MCHC 32.5 L Initial ED EKG: none Departure Departure Disposition: STILL A PATIENT Condition: Stable Clinical Impression Primary Impression: Abdominal pain Secondary Impressions: Flank pain Referrals: PATIENT HAS NO PRIMARY CARE DR (PCP/Family) Departure Forms: Customer Survey General Discharge Information Admission Note Spoke With: LAILA EM MD Documentation of Exam: Documentation of any treatments & extenuating circumstances including Concerns Regarding Discharge (functional status, medication knowledge or non-compliance, living conditions, etc.) that warrant an admission rather than observation: [The patient needs admission for inpatient MRI of the spine, consider neurosurgical consultation, further evaluation of paraspinal infiltrating mass] Spoke to Dr. Donohue will see patient in the a.m. recommended getting an MRI of the cervical thoracic and lumbar spine PATIENT: GEOFFREY VIRGEN SR PRESENT AGE: 51 PATIENT ACCOUNT NO: [id number] : 66 LOCATION: [facility] ORDERING PHYSICIAN: FAVIO SAMANIEGO DO SERVICE DATE: 02/26/17 EXAM TYPE: CAT - CT ABD & PELVIS W/O IV CONTRAS EXAMINATION: CT ABDOMEN AND PELVIS WITHOUT CONTRAST CLINICAL INFORMATION: Right-sided flank pain. COMPARISON: CT from 01/20/2017. TECHNIQUE: Multidetector volumetric imaging was performed from the superior aspect of the liver through the pubic symphysis. Sagittal and coronal reformatted images were obtained on the technologist's workstation. DLP: 322.6 mGy-cm FINDINGS: There is a new poorly defined right paraspinal soft tissue mass centered at the T9-T10 levels with erosion of the right lateral aspects of the T9 and T10 vertebral bodies. The lesion measures approximately 3 x 4 cm in the axial plane and nearly 5 cm craniocaudal. Erosive changes extend across the lateral aspect of the T9-T10 disc space. There is no clear intracanal extension of the mass. The unopacified solid visceral organs appear normal. There is no hydronephrosis or nephrolithiasis. The ureters are normal in caliber. The bladder is mildly distended without wall thickening. No bulky retroperitoneal adenopathy is seen. The abdominal aorta is normal in caliber. There is no evidence of a bowel obstruction. The appendix is normal. The prostate gland appears normal on this noncontrast study. Stable moderate spondylosis at L4-L5. IMPRESSION: New right paraspinal soft tissue mass centered at T9-T10 levels with partial erosion into the T9-T10 vertebral body cortices. Findings are highly suspicious for metastatic disease. An infectious etiology is felt to be less likely given imaging appearance. An MRI targeting the spine without and with contrast could be considered in follow-up for further characterization. This lesion would also be amenable to biopsy with image guidance. Findings discussed with Dr. Samaniego at 7:50 PM on 02/26/2017. DICTATED BY: DAYAMI VASQUEZ MD DATE/TIME DICTATED:02/26/171940 EDUCATION ADMINISTRATOR:TERA DATE/TIME TRANSCRIBED:02/26/171940 CONFIDENTIAL, DO NOT COPY WITHOUT APPROPRIATE AUTHORIZATION. <Electronically signed in Other Vendor System> SIGNED BY: DAYAMI VASQUEZ MD 1999 Critical Care Note Critical Care Note Critical Care Time: non-applicable
--- NOTE | 2017-02-26 18:52 | RADIOLOGY REPORT ---
EXAMINATION: CHEST 2 VIEWS CLINICAL INFORMATION: Flank pain. COMPARISON: 04/26/2016. TECHNIQUE: PA and lateral views of the chest were obtained. FINDINGS: The cardiac silhouette is not enlarged. The mediastinal and hilar contours are unremarkable. There are neither pleural effusions nor pneumothoraces. There are no consolidations. The osseous structures are unremarkable. IMPRESSION: No evidence for acute disease.
--- NOTE | 2017-02-26 20:00 | CT SCAN REPORT ---
EXAMINATION: CT ABDOMEN AND PELVIS WITHOUT CONTRAST CLINICAL INFORMATION: Right-sided flank pain. COMPARISON: CT from 01/20/2017. TECHNIQUE: Multidetector volumetric imaging was performed from the superior aspect of the liver through the pubic symphysis. Sagittal and coronal reformatted images were obtained on the technologist's workstation. DLP: 322.6 mGy-cm FINDINGS: There is a new poorly defined right paraspinal soft tissue mass centered at the T9-T10 levels with erosion of the right lateral aspects of the T9 and T10 vertebral bodies. The lesion measures approximately 3 x 4 cm in the axial plane and nearly 5 cm craniocaudal. Erosive changes extend across the lateral aspect of the T9-T10 disc space. There is no clear intracanal extension of the mass. The unopacified solid visceral organs appear normal. There is no hydronephrosis or nephrolithiasis. The ureters are normal in caliber. The bladder is mildly distended without wall thickening. No bulky retroperitoneal adenopathy is seen. The abdominal aorta is normal in caliber. There is no evidence of a bowel obstruction. The appendix is normal. The prostate gland appears normal on this noncontrast study. Stable moderate spondylosis at L4-L5. IMPRESSION: New right paraspinal soft tissue mass centered at T9-T10 levels with partial erosion into the T9-T10 vertebral body cortices. Findings are highly suspicious for metastatic disease. An infectious etiology is felt to be less likely given imaging appearance. An MRI targeting the spine without and with contrast could be considered in follow-up for further characterization. This lesion would also be amenable to biopsy with image guidance. Findings discussed with Dr. Alfredo at 7:50 PM on 02/26/2017.
--- NOTE | 2017-02-26 20:12 | NUR ---
lactic drawn and sent to lab
--- NOTE | 2017-02-26 21:51 | NUR ---
PATIENT TO BE ADMITTED. RESTING QUIETLY IN HALLWAY BED AREA W/ SPOUSE. PATIENT IS W/O C/O AT THIS TIME.
--- NOTE | 2017-02-26 21:58 | NUR ---
PT MOVED TO ROOM 11 REPORT RECEIVED SURGEON IN ROOM FOR EVAL.
--- NOTE | 2017-02-26 22:00 | NUR ---
REPORT GIVEN TO RIZWANA HERNANDEZ
--- NOTE | 2017-02-26 22:26 | History & Physical ---
HEYDI PATEL,[facility] [place] 2223: General Information and HPI MD Statement: I have seen and personally examined GEOFFREY CALDWELL and documented this H&P. The patient is a 51 year old M who presented with a patient stated chief complaint of back pain. Source of Information: patient, family, old records Exam Limitations: no limitations History of Present Illness: Mr. Caldwell is a 51 y/o M with PMHx of history of IVDA c/b multiple episodes of heroin overdose, ADHD and L4-L5 laminectomy who presents with progressively worsening back pain of 6.5 weeks duration. Patient was in his usual state of health until 01/09 when he was bitten by a tick in his right middle back, which was subsequently removed by his partner. Shortly afterwards he developed pain in his right back and flank with radiation to his abdomen. Patient describes pain as an ache and states that it feels like a "big muscle spasm" in his back. Pain is associated with bloating and gassy feeling in his stomach. Pain progressively worsened over the next few days and patient subsequently presented to the ED on 01/20. CT Abdomen/Pelvis was performed which was unrevealing. Patient was given Flexeril and Toradol with some improvement of the pain and subsequently discharged home. However pain has progressively worsened over the next few weeks following that episode. Currently pain is constant according to the patient and gets up to 10/10 in intensity at times. Patient has also developed constipation starting three weeks prior to current presentation. He denies nausea, vomiting, blood in the stool and changes in stool. He reports weight loss of approximately 6 lbs over the past 3 weeks, noting that he has been careful with what he eats because of the bloating and abdominal pain. He states that his appetite has been good however. He denies fever, chills, leg numbness, tingling or weakness and bladder/bowel incontinence. 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 He also notes pesticide exposure. Currently he is unemployed. He has a history of opioid dependence and IV heroin use. He was in remission for 16 years up until 2016 when he relapsed. Since then he has had five presentations to the [place] ED for heroin overdose, the most recent one on 12/10. He admits to using IV drugs 3 weeks prior to current admission. Allergies/Medications Allergies: Coded Allergies: Penicillins (Severe, TONGUE SWELLING 09/15/16) codeine (Intermediate, VOMITING 09/15/16) Home Med list Alprazolam 1 MG TABLET 1 TAB PO TIDPRN ANXIETY (Reported) Dextroamphetamine/Amphetamine (Dextroamp-Amphetamin 20 MG Tab) 20 MG TABLET 1 TAB PO QPM OCD/ADHD (Reported) Naproxen Sodium (Aleve) 220 MG TABLET 1 TAB PO DAILY PAIN (Reported) Oxycodone HCl 30 MG TABLET 1 TAB PO ONCE PAIN (Reported) Past History Travel History Traveled to [place] past 21 day No Medical History Neurological: NONE EENT: NONE Cardiovascular: NONE Respiratory: NONE Gastrointestinal: NONE Hepatic: NONE Renal: NONE Musculoskeletal: NONE Psychiatric: anxiety, opioid dependence, ADHD, heroine overdose, OCD Endocrine: NONE Blood Disorders: NONE Cancer(s): NONE Tetanus Vaccine: Surgical History Surgical History: L4-L5 laminectomy Past Family/Social History Family History Relations & Conditions if any FATHER, , Age 60+; Cause: Heart attack. FH: Crohn's disease FH: heart attack MOTHER, ; Cause: Stomach cancer. FH: stomach cancer UNCLE FH: colon cancer Psychosocial History Where do you live? Home Who Do You Live With? spouse Services at Home: None Primary Language: Maori Smoking Status: Current Everyday Smoker (1 PPD Smoker-30 Pack Years) ETOH Use: occasional use Illicit Drug Use: history of IV heroin use Functional Ability ADLs Independent: dressing, eating, toileting, bathing. Ambulation: independent IADLs Independent: shopping, housework, finances, food prep, telephone, transportation , medication admin. Employment History Employment Unemployed Profession/Employer Multiple jobs Review of Systems Review of Systems Constitutional: Denies: chills, fever. EENTM: Reports: no symptoms. Cardiovascular: Reports: no symptoms. Respiratory: Reports: no symptoms. GI: Reports: abdominal pain, bloating, constipation. Denies: bowel incontinence, nausea, bloody stool, changes in stool, vomiting. Genitourinary: Reports: no symptoms, see HPI. Denies: hematuria. Musculoskeletal: Reports: back pain. Skin: Denies: jaundice. Neurological/Psychological: Reports: no symptoms. Denies: numbness, paresthesia, tingling, unable to move lower ext. Hematologic/Endocrine: Reports: no symptoms. Immunologic/Allergic: Reports: no symptoms. All Other Systems: Reviewed and Negative Exam & Diagnostic Data Last 24 Hrs of Vital Signs/I&O Vital Signs Date Time Temp Pulse Resp B/P B/P Pulse O2 O2 Flow FiO2 Mean Ox Delivery Rate 02/26 1632 97.1 102 18 130/83 98 Room Air Physical Exam General Appearance Alert, Oriented X3, No Acute Distress Skin No Rashes HEENT Atraumatic, Mucous Membr. moist/pink Neck Supple Cardiovascular Regular Rate, Normal S1, Normal S2, No Murmurs, Gallops, Rubs Lungs Clear to Auscultation Abdomen Soft, No Tenderness, Positive Bowel Sounds Neurological Strength at 5/5 X4 Ext, Sensation Intact, Reflexes 2+ Extremities No Clubbing, No Cyanosis, No Edema Rectal Guiac Negative, Normal Sphincter Tone Last 24 Hrs of Labs/Socrates: Laboratory Tests 02/26/174: Urine Color YEL, Urine Clarity CLEAR, Urine pH 5.5, Ur Specific Doyle 1.025, Urine Protein NEG, Urine Ketones NEG, Urine Nitrite NEG, Urine Bilirubin NEG, Urine Urobilinogen 0.2, Ur Leukocyte Esterase NEG, Ur Microscopic EXAM NOT REQUIRED, Urine Hemoglobin NEG, Urine Glucose NEG 02/26/17 2042: Lactic Acid 1.0 02/26/17 1644: Anion Gap 13, Estimated GFR > 60, BUN/Creatinine Ratio 13.3, Glucose 97, Lactic Acid 0.7, Calcium 10.3 H, Total Bilirubin 0.7, AST 17, ALT 30, Alkaline Phosphatase 93, Total Protein 7.5, Albumin 3.9, Globulin 3.6, Albumin/Globulin Ratio 1.1, CBC w Diff NO MAN DIFF REQ, RBC 4.90, MCV 80.1, MCH 26.0 L, RDW 13.3 , MPV 7.4, Gran % 71.3, Lymphocytes % 20.4 L, Monocytes % 7.0, Eosinophils % 0.9, Basophils % 0.4, Absolute Granulocytes 9.3 H, Absolute Lymphocytes 2.7, Absolute Monocytes 0.9 H, Absolute Eosinophils 0.1, Absolute Basophils 0, PUBS MCHC 32.5 L Diagnostic Data CXR Results No evidence for acute disease. Other Results CT ABDOMEN/PELVIS W/O IV CONTRAST: New right paraspinal soft tissue mass centered at T9-T10 levels with partial erosion into the T9-T10 vertebral body cortices. Findings are highly suspicious for metastatic disease. An infectious etiology is felt to be less likely given imaging appearance. An MRI targeting the spine without and with contrast could be considered in follow-up for further characterization. This lesion would also be amenable to biopsy with image guidance. Assessment/Plan Assessment: Mr. Caldwell is a 51 y/o M with PMHx of history of IVDA c/b multiple episodes of heroin overdose, ADHD and L4-L5 laminectomy who presents with right back and flank pain, with CT scan revealing new right paraspinal soft tissue mass centered at T9-T10. #Paraspinal soft tissue mass: CT Abdomen/Pelvis with right paraspinal soft tissue mass centered at T9-T10 with partial erosion into T9-T10 vertebral body cortices, highly suspicious for metastatic disease, with an infectious etiology felt to be less likely. Of note, mass was not present on CT from one week prior (01/20). Associated symptoms include right flank/back pain, abdominal discomfort, bloating and constipation. No evidence for cord compression including saddle anesthesia, leg weakness/numbness or bladder/bowel incontinence. Labs remarkable for anemia (H/H 12.7/39.2) which was not present one month ago, Cr of 1.2, elevated from baseline of 0.8-1 and elevated inflammatory markers (ESR 45 and CRP >9). Differential includes malignancy (either metastasis from another site or a primary tumor) given patient's multiple risk factors including smoking, asbestos and pesticide exposure, family history of cancer and new-onset anemia and infectious etiology such as spinal epidural abscess given history of IV drug use and leukocytosis. Onset of pain coincides with tick bite but significance of this is unclear. * Admit to General Medicine. * MRI of the thoracic spine W/WO WILLOW ordered for further characterization of the mass. * Review imaging with the radiologist as the mass was not present on prior CT Abdomen/Pelvis on 01/20. * Neurosurgery consulted. Appreciate their recs. * Neurochecks Q4H. * Check BCx, UCx and sputum Cx. * ID consult to be placed to evaluate for infectious etiology such as spinal epidural abscess. * Patient will eventually require IR-guided aspiration or biopsy of the paraspinal mass. * Hold pharmacologic anti-coagulation in anticipation for possible IR-guided procedure. * Consider oncology consult. * Age-appropriate cancer screening for prostate and colon cancer should be eventually performed. * Toradol 15 mg IV Q6H PRN for severe pain (scale 7-10), Motrin 600 mg PO Q6H PRN for moderate pain (scale 4-6) and Tylenol 650 mg PO Q6H PRN for mild pain ( scale 1-3). * Scheduled Miralax and Senna for constipation. #Polysubstance abuse: History of IVDA and heroin use with multiple hospitalizations for OD. Was in remission for 16 years but relapsed in 2016. Last IV heroin 3 weeks ago. * Consider psych and social work consult. Diet: Regular DVT PPx: ALPs CODE: FULL As Ranked By This Provider Problem List: 1. Right flank pain 2. Paraspinal mass 3. Nicotine dependence 4. IV drug user 5. Right-sided back pain Core Measures/Miscellaneous Acute Coronary Syndrome ACS Diagnosis: No Cerebrovascular Accident CVA/TIA Diagnosis: No Congestive Heart Failure CHF Diagnosis: No VTE (View Protocol) VTE Risk Factors: Age > 40, Smoking [facility] prophylaxis d/t: No contraindications No VTE Pharm Prophylaxis d/t: Surgical contraindication (Possible biopsy in the AM) VTE Diagnosis: No VTE Type: NONE VTE Confirmed by (Test): NONE Sepsis (View Protocol) Severe Sepsis Present: No Septic Shock Septic Shock Present: No Miscellaneous Documentation [facility] Physician: PATIENT HAS NO PRIMARY CARE DR Patient sees these Specialists Psychiatrist Cristiana Parsons MD Level of Patient Care: General Medicine SIVANOBI STANTON 02/26/17 2037: Resident Review Statement Resident Statement: examined this patient, discussed with leadership program internship, agreed with leadership program internship, reviewed images Other Findings: This is a 51 years old man with past medical history of ADHD, OCD, polysubstance abuse with multiple trips to the ER for overdose who is presenting with bilateral flank pain that started on January 12. The shunt is very particular about the date because 3 days prior had been bitten by a tick area the pain continued to persist and on January 20 was seen at the [place] ER given pain medication only with moderate relief. He reports that it's an aching pain most of the time 10 out of 10, radiating to the front part of the abdomen but no direct radiation to the lower limbs, he denies any weakness or incontinence of urine or fecal, he has no numbness or tingling sensation. The patient volunteers that he has lost weight around 6 pounds since the start of symptoms which is not deliberate. For the past 3 weeks the patient has been having constipation 1-2 bowel movements a week which is well below his average of at least one bowel motion a day, he has been experiencing bowel gases with preponderance to burp to reduce the fullness without any success. Trivedi denies any change in stool, blood in stool or urine, yellowish discoloration of the skin. He volunteers family history of cancer as with colon in the ankle and stomach cancer in the mother. 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 He denies any chest pain, shortness of breath, palpitation, nausea or vomiting, urinary symptoms Vital signs on arrival afebrile 97.1, tachycardic 102 respiration of 18 blood pressure 130/80, 98% on room air Physical exam: Patient seated comfortably not in acute distress cooperative Chest: Clear lungs bilaterally Abdomen: No palpable mass, no tenderness negative Pereira's sign Back: Paraspinal tenderness more on the right, no palpable mass no skin changes Rectal: Normal sphincter tone, normal stool consistency in the vault, negative guaiac test Extremities: No cyanosis clubbing or edema Neurological: Intact sensation across all dermatomes from T6 all the way down, normal knee reflexes and normal power bilaterally Labs: H&H 12.7/39.2, WBC 13.1, MCV 80.1, creatinine 1.2 on January 20 was 0.8 Urine toxicology positive for opiates and cannabis and amphetamines Imaging: New right paraspinal soft tissue mass centered at T9-T10 levels with partial erosion into the T9-T10 vertebral body cortices. Findings are highly suspicious for metastatic disease. Assessment and plan This is a 51 years old man with polysubstance abuse who is presenting with 6 weeks history of bilateral flank pain that has been getting worse, not aggravated with movement and associated with weight loss of around 6 pounds and anemia hemoglobin 12.7 from his historical value of around 14.7 and borderline MCV of 80.1. This patient refuses recent use of IV drug of abuse but given his extended polysubstance abuse history is hard to rule out and despite lacking features suggestive of infection he might be having a paraspinal abscess from IV drug abuse though imaging is showing that to be less likely. He has significant family history of colon cancer and stomach cancer for the mother with significant exposure carcinogenic materials Problem list Vertebral mass probably metastatic malignancy/infectious process Constipation Admitting the patient to general medicine floor Will hold pharmacological DVT prophylaxis and keep the patient on ALPS ONLY Pain control with Tylenol, ibuprofen and Toradol Patient has a possibility of infectious process will benefit from ID review Neurosurgery consult placed for further management of the vertebral mass MRI of the vertebral spine with and without contrast to further characterize the mass Please review previous images of CT of the abdomen and pelvis on the vertebral section to rule out any possibility of this must been present on January 20 when he had a previous CT scan This patient should be discharged with clear instruction to have colonoscopy done he is 51 years old, has borderline anemia with hemoglobin of 12.7 and is having a mass which we are not sure if his metastasis plus his strong family history of cancer he needs to be screened as soon as possible. Bowel regimen with MiraLAX and senna S Iron studies Guaiac all stools Patient is full code MANAV PATEL, [facility] 02/27/17 0458: Attending MD Review Statement Attending Statement Attending MD Statement: examined this patient, discuss w/resident/PA/BOOK PUBLISHER, agreed w/resident/PA/BOOK PUBLISHER Attending Assessment/Plan: 51 yo M smoker with h/o IVDA, polysubstance abuse with multiple ER visits for heroin OD, ADHD, OCD, L4-5 laminectomy, is here with c/o right sided upper back pain. Symptoms started around January 12, after he sustained a tick bite (tick removed in whole by his partner). He was seen in the ER on January 20 for similar complaints, CT was not impressive and he was discharged on flexeril and meloxicam for back pain. However, symptoms worsened over past 3 days, with associated constipation and 6 lb weight loss over 3 weeks. He denies urinary or fecal incontinence, paresthesias or paralysis, no sensory deficits, no shooting pains down the LE. No fever/chills, cough, diarrhea, ROS was negative. Strong family h/o cancer Mother had stomach cancer, Uncle had colon cancer. He last used IV drugs 3 weeks ago, reports taking roxicodone off the street to help with the pain. He was in remission for 16 years but relapsed in 2016. VSS. Back no spinal tenderness, paraspinal muscle spasm and tenderness around T10 area, tick bite vishal noted. Neuro exam unremarkable, rectal exam: tone good, guaiac neg. No lymphadenopathy. Labs: WBC 13.1, H/H 12.7/39.2, lymphs 20.4, ESR 45, lactic acid normal, Calcium 10.3, CRP > 9.0, UA clear. Utox positive for opiates, methadone, amphetamines, benzos and cannabis. CT abd/pelvis: nothing acute in abdomen, but there is a new right paraspinal soft tissue mass centered at T9-T10 levels with partial erosion into the T9-T10 vertebral body cortices, ? infectious vs. Metastatic disease. CXR neg. 1. Paraspinal mass in this patient with h/o IVDA and recent tick bite ? significance ?tick paralysis but he does not depict typical symptoms. ? metastatic disease of unknown primary vs. Infectiou etiology. GM admit, neurocheks, evaluate mass further with MRI of spine, Neurosurgery consult (Dr. Ye made aware by ER), panculture. Review images with radiologist in AM, as this mass was not seen in CT A/P done on January 20. Check INR, patient will need IR guided biopsy or aspiration of this mass. Consult ID in AM. Pain management. He needs age appropriate screening for colon and prostate cancer. Consider Oncology consult. Smoking cessation counseling done. Consider Psych and social work consult. DVT ppx Alps (in case of need for biopsy, hold heparin products). Full code.
--- NOTE | 2017-02-26 22:40 | NUR ---
PT WOULD LIKE TO WAIT UNTIL HE GOES UPSTAIRS TO CHANGE INTO A GOWN STATES HE IS FREEZING.
--- NOTE | 2017-02-26 23:06 | NUR ---
PT WATCHING TV OFFERS NO COMPLAINTS
--- NOTE | 2017-02-26 23:10 | Admission Certification ---
Admission Certification Certification Statement - As attending physician, I certify that at the time of - admission, based on clinical presentation, severity of - symptoms, need for further diagnostic testing and - therapeutic interventions, and risk of adverse outcomes - without in-hospital treatment, in my clinical assessment, - this patient requires an acute hospital stay for a minimum - of two nights or longer. I have also considered psychsocial - factors such as support system, advanced age, financial - issues, cognitive issues, and failed out-patient treatments, - past re-admission history, safety of patient, and lack of - compliance as applicable. Specific rationale supporting this admission is: 51 yo M with back pain, noted to have a paraspinal mass T9-10, needs further evaluation with MRI, Neurosurgery and ID consult.
--- NOTE | 2017-02-26 23:36 | NUR ---
PT BED ASSIGNMENT 220-2
[2017-02-27 00:24] VITALS: BP 138/90
--- NOTE | 2017-02-27 04:16 | NUR ---
PT ARRIVED TO FLOOR AT 0015 VIA WHEELCHAIR. A&OX3, RA, DENIES SOB, PT IN STREET CLOTHES, REFUSING BLACK AT THIS TIME. STATES ABD/FLANK PAIN IS 7/10. MEDICATED PER EMAR. ORIENTED TO ROOM AND CALLBELL. PT OFFERS NO COMPLAINTS AT THIS TIME.
--- NOTE | 2017-02-27 06:01 | PN- Housestaff ---
See Addendum Subjective Follow-up For: Paraspinal mass Subjective: Patient seen and examined this morning. Admitted last night. Reports back pain under control with current regimen. Denies any sensory deficits, focal weakness, gait imbalance or paresthesia. Also endorses abdominal pain radiating from the back. No recent fever, chills, chest discomfort, palpitations, dyspnea abdominal pain, nausea, vomiting, headache. Review of Systems Constitutional: Reports: see HPI. Objective Last 24 Hrs of Vital Signs/I&O Vital Signs Date Time Temp Pulse Resp B/P B/P Pulse O2 O2 Flow FiO2 Mean Ox Delivery Rate 02/27 625 98.5 73 20 148/90 97 Room Air 02/27 0024 98.0 75 20 138/90 97 Room Air 02/26 2356 96.5 82 18 139/87 98 Room Air 02/26 1632 97.1 102 18 130/83 98 Room Air Intake & Output 02/27 0800 02/27 0000 02/26 1600 Intake Total 1240 Output Total Balance 1240 Intake, IV 1000 Intake, Oral 240 Patient 81.647 kg 81.647 kg Weight Weight Reported by Patient Measurement Method Physical Exam General Appearance: Alert, Oriented X3, Cooperative Other Physical Findings: Skin No Rashes HEENT Atraumatic, Mucous Membr. moist/pink Neck Supple Cardiovascular Regular Rate, Normal S1, Normal S2, No Murmurs, Gallops, Rubs Lungs Clear to Auscultation Abdomen Soft, No Tenderness, Positive Bowel Sounds Neurological Strength at 5/5 X4 Ext, Sensation Intact, Reflexes 2+ Extremities No Clubbing, No Cyanosis, No Edema Rectal Guiac Negative, Normal Sphincter Tone Current Medications: Current Medications Sig/Niru Start time Last Medication Dose Route Stop Time Status Admin Acetaminophen 650 MG Q6P PRN 02/26 2245 AC PO Alprazolam 1 MG TIDPRN PRN 02/26 2315 AC PO 03/05 2314 Heparin Sodium 5,000 UNIT Q8 02/27 06 CAN (Porcine) SC Ibuprofen 600 MG Q6P PRN 02/26 2245 AC PO Ketorolac 15 MG Q6P PRN 02/26 224 AC 02/27 Tromethamine IV 0638 Ketorolac 0 .STK-MED ONE 02/26 1941 DC Tromethamine .ROUTE Ketorolac 30 MG ONCE ONE 02/26 181 DC 02/26 Tromethamine IV 02/26 Non-Formulary 0 SEE ADMIN CRITERIA 02/26 2315 CAN Medication ANY Ondansetron HCl 0 .STK-MED ONE 02/26 1941 DC .ROUTE Ondansetron HCl 4 MG ONCE ONE 02/26 1815 DC 02/26 IV 02/26 Polyethylene Glycol 17 GM DAILY 02/27 1000 AC PO Senna/Docusate Sodium 1 TAB BID 02/26 2230 AC 02/26 PO 2306 Sodium Chloride 1,000 ML BOLUS ONE 02/26 1745 DC 02/26 IV 02/27 1944 175 Last 24 Hrs of Lab/Socrates Results Last 24 Hrs of Labs/Mics: Laboratory Tests 02/26/172233: Urine Opiates Screen 2403.00 H, Methadone Screen > 735 H, Barbiturate Screen < 60, Ur Phencyclidine Scrn < 6.00, Amphetamines Screen > 1450 H, U Benzodiazepines Scrn > 800 H, Urine Cocaine Screen < 50, Urine Cannabis Screen 75.70 H, Urine Color YEL, Urine Clarity CLEAR, Urine pH 5.5, Ur Specific [place] 1.025, Urine Protein NEG, Urine Ketones NEG, Urine Nitrite NEG, Urine Bilirubin NEG, Urine Urobilinogen 0.2, Ur Leukocyte Esterase NEG, Ur Microscopic EXAM NOT REQUIRED, Urine Hemoglobin NEG, Urine Glucose NEG 02/26/172041: Lactic Acid 1.0 02/26/17 1644: Anion Gap 13, Estimated GFR > 60, BUN/Creatinine Ratio 13.3, Glucose 97, Lactic Acid 0.7, Calcium 10.3 H, Total Bilirubin 0.7, AST 17, ALT 30, Alkaline Phosphatase 93, C-Reactive Prot, Quant > 9.0 H, Total Protein 7.5, Albumin 3.9, Globulin 3.6, Albumin/Globulin Ratio 1.1, Total PSA Pending, CBC w Diff NO MAN DIFF REQ, RBC 4.90, MCV 80.1, MCH 26.0 L, RDW 13.3, MPV 7.4, Gran % 71.3, Lymphocytes % 20.4 L, Monocytes % 7.0, Eosinophils % 0.9, Basophils % 0.4, Absolute Granulocytes 9.3 H, Absolute Lymphocytes 2.7, Absolute Monocytes 0.9 H, Absolute Eosinophils 0.1, Absolute Basophils 0, PUBS MCHC 32.5 L, ESR Westergren 45 H Microbiology 02/27 0550 URINE ROUT: Urine Culture - COLB 02/27 0550 LOWER RESP: Respiratory Culture - COLB 02/27 0550 LOWER RESP: Gram Stain - COLB 02/27 0550 BLOOD: Blood Culture - COLB 02/27 0550 BLOOD: Blood Culture - COLB Assessment/Plan Assessment: Mr. Caldwell is a 51 y/o M with PMHx of history of IVDA c/b multiple episodes of heroin overdose, ADHD and L4-L5 laminectomy who presents with right back and flank pain, with CT scan revealing new right paraspinal soft tissue mass centered at T9-T10. #Paraspinal soft tissue mass: Mass seen at T9-T10 on CT abd/pelvis, concerning for metastatic neoplasm vs. epidural abscess in the setting of IV drug use. Although radiographically it looks more like neoplasm, given the fact that this mass was not visible on prior CT (01/20) that was done recently, there is a possibility that it may be an abscess that developed acutely. Patient came in with leukocytosis and ESR of 45 but no other signs of infection. 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 * Vitals per protocol, monitor for SIRS * Monitor CBC, trend WBC - decreasing * MRI of the whole spine for further investigation * Review prior CT abd/pelvis from 01/20 with a radiologist * Neurosurgery (Dr. Ye) consulted, appreciate recs * ID consulted to r/o abscess, appreciate recs * Neurochecks Q4H. * Follow panculture * NPO starting midnight for CT-guided biopsy tomorrow * Check PSA level * GI referral for colonoscopy outpatient * Adequate pain control with Toradol 15 mg IV Q6H PRN for severe pain, Motrin 600 mg PO Q6H PRN for moderate pain, and Tylenol 650 mg PO Q6H PRN for mild pain * Continue bowel regimen for constipation #Polysubstance abuse: Utox positive for opiate, methadone, amphetamine, benzo and cannabis. He carries a hx of IV drug use (including) resulting in multiple admissions for overdose in 2016. He reportedly had been in remission for 16 years until he relapsed in 2016. Last IV heroin use was about 3 weeks ago. * Watch for opiate/benzo w/d * Consider psych and social work consult. # Tobacco dependence * Nicotine patch daily * Smoking cessation counseling provided - Regular (NPO starting midnight) - Mild pain pathway - DVT ppx with ALPs - Full code Problem List: 1. Right flank pain 2. Paraspinal mass 3. Nicotine dependence 4. Abdominal pain 5. Amphetamine abuse 6. Benzodiazepine abuse 7. Opiate abuse, episodic 8. Heroin overdose 9. IV drug user Pain Ratin Pain Location: Back, right flank, abdomen Pain Goal: Pain 4 or less Pain Plan: Moderate pathway Tomorrow's Labs & Rationales: CBC BEP Pain Plan: Moderate pathway Tomorrow's Labs & Rationales: CBC BEP
[2017-02-27 06:25] VITALS: BP 148/90
[2017-02-27 08:27] LABS: ABSOLUTE BASOPHIL COUNT 0.1 /CUMM (0.0-0.2); ABSOLUTE EOSINOPHIL COUNT 0.2 /CUMM (0.0-0.7); ABSOLUTE GRANULOCYTE CT 8.5 /CUMM (1.4-6.5); ABSOLUTE LYMPH COUNT 2.5 /CUMM (1.2-3.4); ABSOLUTE MONOCYTE COUNT 1.1 /CUMM (0.10-0.60); BASOPHIL % 0.4 % (0.0-2.0); EOSINOPHIL % 1.5 % (0-5); HEMATOCRIT 38.7 % (42-52); MEAN CORPUSCULAR HGB 26.3 PG (27.0-31.0); MEAN CORPUSCULAR HGB CONC 32.8 G/DL (33.0-37.0); PLATELET COUNT 339 /CUMM (130-400); RBC DISTRIBUTION WIDTH 13.7 % (11.5-14.5); RED BLOOD CELL CT 4.83 /CUMM (4.70-6.10); WHITE BLOOD CELL COUNT 12.3 /CUMM (4.8-10.8)
[2017-02-27 08:36] LABS: PT 12.6 SEC (9.4-12.5)
--- NOTE | 2017-02-27 09:48 | PN- Student ---
Subjective Subjective: CC: right flank pain HPI: 51 yo male with history of heroin overdose, IVDU, L4-L5 laminectomy, ADHD, and OCD, presented to ER last night for right flank pain. States he had a tick bite, which was removed, 3 days prior pain (01/09/17). Used IV heroin 3 weeks ago due to the pain. Pain originates in right flank and radiates to left flank and to abdomen. He describes it as a sharp pain, like a "back spasm that is twisting" and is constant and continues to increase. Last night, he states he was restless because of the pain but this morning, he rates the pain as a 4/10 after administration of pain medication. Pain is relieved when he brings his legs up to his chest and is worse when eating. Pt is still constipated, not having a bowel movement in the past 3 days. Reports 6 lb weight loss over 3 weeks. Denies fever, nausea, vomiting, headache, chills, night sweats, chest pain, difficulty breathing, numbness, tingling, and weakness down legs. PMHx: Illnesses/conditions: IVDU, ADHD, OCD Current Medications Sig/Niru Start time Last Medication Dose Route Stop Time Status Admin Acetaminophen 650 MG Q6P PRN 02/26 2245 AC PO Alprazolam 1 MG TIDPRN PRN 02/26 2315 AC 02/27 PO 03/05 2314 0948 Heparin Sodium 5,000 UNIT Q8 02/27 0600 CAN (Porcine) SC Ibuprofen 600 MG Q6P PRN 02/265 02/27 PO 0947 Ketorolac 15 MG .STK-MED ONE 02/274 DC Tromethamine IM 02/27 0035 Ketorolac 15 MG Q6P PRN 02/26 2245 AC 02/27 Tromethamine IV 0638 Ketorolac 0 .STK-MED ONE 02/26 1941 DC Tromethamine .ROUTE Ketorolac 30 MG ONCE ONE 02/26 1815 DC 02/26 Tromethamine IV 02/27 1816 193 Nicotine 14 MG DAILY 02/27 1000 AC TOP Non-Formulary 0 SEE ADMIN CRITERIA 02/26 2315 CAN Medication ANY Ondansetron HCl 0 .STK-MED ONE 02/26 1941 DC .ROUTE Ondansetron HCl 4 MG ONCE ONE 02/26 1815 DC 02/26 IV 06/07 1816 1934 Polyethylene Glycol 17 GM DAILY 02/27 1000 AC 02/27 PO 0942 Senna/Docusate Sodium 1 TAB BID 02/26 2230 AC 02/27 PO 0942 Simethicone 80 MG Q4P PRN 02/27 0830 AC 02/27 PO 0947 Sodium Chloride 1,000 ML BOLUS ONE 02/26 1745 DC 02/26 IV 02/26 1944 1752 Allergies: penicillins, codeine Past surgical hx: L4-L5 laminectomy (1993) PCP/specialists: doesn't see a PCP, sees psychiatrist 1x/month Family Hx: Mother - stomach cancer, at age 73 Father - Crohn's, at age 75 from [place] father's side - colon cancer from 1st degree relatives Social Hx: Worked in construction for 16 years, 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 no murmurs Pulm: clear to auscultation. no wheezing, rales, rhonchi Abd: distended, normoactive bowel sounds, tender to palpation in RUQ Back: pain upon palpation of thoracic spine. Negative Pinedo Mo's sign. Extremities: no clubbing, no edema Neuro: 5/5 muscle strength in LE, -straight leg raise, denies numbness, tingling , numbness in LE Diagnostics: CXR: unremarkable CT abdomen/pelvis: New right paraspinal soft tissue mass centered at T9-T10 levels with partial erosion into the T9-T10 vertebral body cortices. Findings are highly suspicious for metastatic disease. Vital Signs Date Time Temp Pulse Resp B/P B/P Pulse O2 O2 Flow FiO2 Mean Ox Delivery Rate 02/27 0625 98.5 73 20 148/90 97 Room Air 02/27 0024 98.0 75 20 138/90 97 Room Air 02/26 2356 96.5 82 18 139/87 98 Room Air 02/26 1632 97.1 102 18 130/83 98 Room Air Intake & Output 02/27 1600 02/27 0800 02/27 0000 Intake Total 1240 Output Total Balance 1240 Intake, IV 1000 Intake, Oral 240 Patient 180 lb 180 lb Weight Weight Reported by Patient Measurement Method Results Results: Laboratory Tests 02/27/17 0738: PT 12.6 H, INR 1.20 H, CBC w Diff NO MAN DIFF REQ, RBC 4.83, MCV 80.0, MCH 26.3 L, RDW 13.7, MPV 8.0, Gran % 69.0, Lymphocytes % 20.2 L, Monocytes % 8.9, Eosinophils % 1.5, Basophils % 0.4, Absolute Granulocytes 8.5 H, Absolute Lymphocytes 2.5, Absolute Monocytes 1.1 H, Absolute Eosinophils 0.2, Absolute Basophils 0.1, PUBS MCHC 32.8 L 02/26/17 2234: Urine Opiates Screen 2403.00 H, Methadone Screen > 735 H, Barbiturate Screen < 60, Ur Phencyclidine Scrn < 6.00, Amphetamines Screen > 1450 H, U Benzodiazepines Scrn > 800 H, Urine Cocaine Screen < 50, Urine Cannabis Screen 75.70 H, Urine Color YEL, Urine Clarity CLEAR, Urine pH 5.5, Ur Specific [place] 1.025, Urine Protein NEG, Urine Ketones NEG, Urine Nitrite NEG, Urine Bilirubin NEG, Urine Urobilinogen 0.2, Ur Leukocyte Esterase NEG, Ur Microscopic EXAM NOT REQUIRED, Urine Hemoglobin NEG, Urine Glucose NEG 02/26/17 2042: Lactic Acid 1.0 02/26/17 1644: Anion Gap 13, Estimated GFR > 60, BUN/Creatinine Ratio 13.3, Glucose 97, Lactic Acid 0.7, Calcium 10.3 H, Total Bilirubin 0.7, AST 17, ALT 30, Alkaline Phosphatase 93, C-Reactive Prot, Quant > 9.0 H, Total Protein 7.5, Albumin 3.9, Globulin 3.6, Albumin/Globulin Ratio 1.1, Total PSA Pending, CBC w Diff NO MAN DIFF REQ, RBC 4.90, MCV 80.1, MCH 26.0 L, RDW 13.3, MPV 7.4, Gran % 71.3, Lymphocytes % 20.4 L, Monocytes % 7.0, Eosinophils % 0.9, Basophils % 0.4, Absolute Granulocytes 9.3 H, Absolute Lymphocytes 2.7, Absolute Monocytes 0.9 H, Absolute Eosinophils 0.1, Absolute Basophils 0, PUBS MCHC 32.5 L, ESR Westergren 45 H Microbiology 02/27 0855 BLOOD: Blood Culture - RECD 02/27 0750 BLOOD: Blood Culture - CAN Cancelled: Quantity not sufficient for both blood culture bottles. 02/27 0735 BLOOD: Blood Culture - RECD 02/27 0550 URINE ROUT: Urine Culture - COLB 02/27 0550 LOWER RESP: Respiratory Culture - COLB 02/27 0550 LOWER RESP: Gram Stain - COLB Assessment/Plan Assessment: 51 yo male with PMHx of heroine overdose, IVDU, L4-L5 laminectomy, ADHD, OCD presented to ER last night (02/26/17) for worsening right flank pain of 3 weeks. PE significant for pain upon palpation of lower back. CT of abd/pelvis shows right paraspinal soft tissue mass at T9-T10 with partial erosion into vertical body cortices. Differential: 1. Metastatic spinal tumor * Spinal epidural abscess secondary to IVDU. Other risk factors include: DM, HIV , alcoholism, bactermia. * Potential primary tumor sites in lungs (31%), GI tract (9%), prostate (8%) * Increase in serum Ca2+ could suggest cancer. 2. Osteomyelitis * Worsening back pain at night, unintentional weight loss, hx of IVDU and elevated CRP * Hx of IVDU, gram negative organisms are causative agents 3. Hematagenous infection * Infectious cause due hx of tick bite and increase in WBC Plan: 1. Paraspinal mass * Consult neurosurgery * MRI of total spine to characterize mass with guided CT biopsy tomorrow to characterize cells. * CT chest to r/o primary lung tumor. * Obtain PSA level to r/o primary prostate tumor. * Obtain DAVID test to r/o HIV infection. * Recheck vitals and labs - WBC, Hgb, Hct, Ca2+, INR, CRP * Manage pain with IV NSAIDs and tylenol PRN * Consult ID. Panculture to r/o infectious cause or determine causative agent and begin antibiotic therapy (vancomycin + cefepime). Lyme antibody to r/o Lyme. 2. Constipation * Start bowel regimen for continued constipation and start simethicone for bloating 3. IVDU * Psych consult * Continue seeing psychiatrist 1x/month 4. Chronic conditions - ADHD, OCD * Continue home medications Other: -Add nicotine patch due to tobacco dependence -Outpatient colonoscopy due to positive family hx -See a PCP annually
--- NOTE | 2017-02-27 11:18 | Cons- Neurosurgical ---
General Information and HPI Consulting Request Date of Consult: 02/27/17 Requested By: MANVA PATEL,LAILA Reason for Consult: Spinal lesion at T9-T10 Source of Information: patient, old records Exam Limitations: no limitations History of Present Illness: 51-year-old right-handed white male, chronic user of opiates including heroin, long-standing history of IVDA, multiple episodes of heroin I overdose, started in January 09 having noticed that she had a tick bites on his back by January 12 she was having significant complain of spasms along his basket back he was seen in the emergency room here on January 20 medicated and sent home since about mid January he has had bilateral belt-like pain down on his chest and a sensation of bloating he has come in because of worsening pain he denies any weakness or tingling in his legs or any difficulty voiding Allergies/Medications Allergies: Coded Allergies: Penicillins (Severe, TONGUE SWELLING 09/15/16) codeine (Intermediate, VOMITING 09/15/16) Home Med List: Alprazolam 1 MG TABLET 1 TAB PO TIDPRN ANXIETY (Reported) Dextroamphetamine/Amphetamine (Dextroamp-Amphetamin 20 MG Tab) 20 MG TABLET 1 TAB PO QPM OCD/ADHD (Reported) Naproxen Sodium (Aleve) 220 MG TABLET 1 TAB PO DAILY PAIN (Reported) Oxycodone HCl 30 MG TABLET 1 TAB PO ONCE PAIN (Reported) Current Medications: Current Medications Sig/Niru Start time Last Medication Dose Route Stop Time Status Admin Acetaminophen 650 MG Q6P PRN 02/26 2245 AC PO Alprazolam 1 MG TIDPRN PRN 02/265 AC 02/27 PO 03/05 2314 0948 Heparin Sodium 5,000 UNIT Q8 02/27 0600 CAN (Porcine) SC Ibuprofen 600 MG Q6P PRN 02/265 AC 02/27 PO 0947 Ketorolac 15 MG .STK-MED ONE 02/27 34 DC Tromethamine IM 02/27 35 Ketorolac 15 MG Q6P PRN 02/26 2245 AC 02/27 Tromethamine IV 0638 Ketorolac 0 .STK-MED ONE 02/26 1941 DC Tromethamine .ROUTE Ketorolac 30 MG ONCE ONE 02/26 1815 DC 02/26 Tromethamine IV 02/27 1816 193 Nicotine 14 MG DAILY 02/27 1000 AC TOP Non-Formulary 0 SEE ADMIN CRITERIA 02/26 2315 CAN Medication ANY Ondansetron HCl 0 .STK-MED ONE 02/26 1941 DC .ROUTE Ondansetron HCl 4 MG ONCE ONE 02/26 1815 DC 02/26 IV 02/26 Polyethylene Glycol 17 GM DAILY 02/27 1000 AC 02/27 PO 0942 Senna/Docusate Sodium 1 TAB BID 02/26 2230 AC 02/27 PO 0942 Simethicone 80 MG Q4P PRN 02/27 830 02/27 PO 0947 Sodium Chloride 1,000 ML BOLUS ONE 02/26 1745 DC 02/26 IV 02/27 1944 175 Past History Medical History Blood Transfusion Hx: No Type of Reaction: Anaphylaxis (none) Neurological: NONE EENT: NONE Cardiovascular: NONE Respiratory: NONE Gastrointestinal: NONE Hepatic: NONE Renal: NONE Musculoskeletal: NONE Psychiatric: anxiety, opioid dependence, ADHD heroine overdose Endocrine: NONE Blood Disorders: NONE Cancer(s): NONE ALLERGY AND IMMUNOLOGY SPECIALIST/Reproductive: NONE (not applicable) Other Medical Hx: ADHD and a lumbar laminectomy at L4-L5 Surgical History Pertinent Surgical History: L4-L5 laminectomy Family History Relations & Conditions If Any: FATHER, , Age 60+; Cause: Heart attack. FH: Crohn's disease FH: heart attack MOTHER, ; Cause: Stomach cancer. FH: stomach cancer UNCLE FH: colon cancer Psychosocial History Where Do You Live? Home Who Do You Live With? spouse Services at Home: None Primary Language: Azeri Smoking Status: Current Everyday Smoker (1 PPD Smoker-30 Pack Years) ETOH Use: occasional use Illicit Drug Use: history of IV heroin use Living Will? unknown Power of Auto Battery Builder/HCP? unknown Name of POA/HCP: unknown Other Social History: Not relevant Functional Ability ADLs Independent: dressing, eating, toileting, bathing. Ambulation: independent IADLs Independent: shopping, housework, finances, food prep, telephone, transportation , medication admin. Employment History Employment: Unemployed Profession/Employer: Multiple jobs Retired? unknown Review of Systems Review of Systems: Complains of chest pain and a belt-like matter. Has abdominal bloating. Has no weakness in his legs. No difficulty ambulating. Review of Systems Constitutional: Reports: malaise. EENTM: Denies: no symptoms. Cardiovascular: Denies: no symptoms. Respiratory: Denies: no symptoms. GI: Reports: bloating. Genitourinary: Denies: no symptoms. Musculoskeletal: Reports: see HPI. Skin: Denies: no symptoms. Neurological/Psychological: Reports: see HPI. Hematologic/Endocrine: Denies: no symptoms. Immunologic/Allergic: Denies: no symptoms. All Other Systems: Reviewed and Negative Exam & Diagnostic Data Vital Signs and I&O Vital Signs Date Time Temp Pulse Resp B/P B/P Pulse O2 O2 Flow FiO2 Mean Ox Delivery Rate 02/27 0625 98.5 73 20 148/90 97 Room Air 02/27 0024 98.0 75 20 138/90 97 Room Air 02/26 2356 96.5 82 18 139/87 98 Room Air 02/26 1632 97.1 102 18 130/83 98 Room Air Intake & Output 02/27 1600 /08 0800 06/08 0000 / 1600 /07 0800 06/07 0000 Intake Total 1240 Output Total Balance 1240 Intake, IV 1000 Intake, Oral 240 Patient 180 lb 180 lb Weight Weight Reported by Patient Measurement Method Physical Exam: Awake alert oriented 3. Tender to palpation of his thoracic spine. No definite sensory level on his chest. Good motor strength both lower extremities. Sensory examination lower extremities within normal limits. Slightly hyperreflexic at knee and ankle without clonus. Toes indifferent Physical Exam General Appearance: no apparent distress Head: atraumatic Eyes: Bilateral: normal appearance. Ears, Nose, Throat: normal pharynx Neck: supple Respiratory: normal breath sounds Cardiovascular: regular rate/rhythm Gastrointestinal: soft Rectal: normal rectal tone Back: normal inspection, vertebral tenderness, muscle spasm Extremities: normal inspection Neurologic/Psych: no motor/sensory deficits, awake, alert, oriented x 3, normal gait, hyperreflexic activity as described above Cranial Nerves: normal hearing Skin: intact Lymphatic: no anterior cervical luli Reproductive: Normal male genitalia Other Physical Findings: Paraspinous muscle spasm in the thoracolumbar junction Evidence of prior surgery of the lumbar spine Last 24 Hours of Labs: Laboratory Tests 02/27 02/26 0738 2234 Coagulation PT (9.4 - 12.5 SEC) 12.6 H INR (0.90 - 1.17) 1.20 H Hematology CBC w Diff NO MAN DIFF REQ WBC (4.8 - 10.8 /CUMM) 12.3 H RBC (4.70 - 6.10 /CUMM) 4.83 Hgb (14.0 - 18.0 G/DL) 12.7 L Hct (42 - 52 %) 38.7 L MCV (80.0 - 94.0 FL) 80.0 MCH (27.0 - 31.0 PG) 26.3 L RDW (11.5 - 14.5 %) 13.7 Plt Count (130 - 400 /CUMM) 339 MPV (7.4 - 10.4 FL) 8.0 Gran % (42.2 - 75.2 %) 69.0 Lymphocytes % (20.5 - 51.1 %) 20.2 L Monocytes % (1.7 - 9.3 %) 8.9 Eosinophils % (0 - 5 %) 1.5 Basophils % (0.0 - 2.0 %) 0.4 Absolute Granulocytes (1.4 - 6.5 /CUMM) 8.5 H Absolute Lymphocytes (1.2 - 3.4 /CUMM) 2.5 Absolute Monocytes (0.10 - 0.60 /CUMM) 1.1 H Absolute Eosinophils (0.0 - 0.7 /CUMM) 0.2 Absolute Basophils (0.0 - 0.2 /CUMM) 0.1 PUBS MCHC (33.0 - 37.0 G/DL) 32.8 L Toxicology Urine Opiates Screen (>2000 NG/ML) 2403.00 H Methadone Screen (>300 NG/ML) > 735 H Barbiturate Screen (>200 NG/ML) < 60 Ur Phencyclidine Scrn (>25 NG/ML) < 6.00 Amphetamines Screen (>1000 NG/ML) > 1450 H U Benzodiazepines Scrn (>200 NG/ML) > 800 H Urine Cocaine Screen (>300 NG/ML) < 50 Urine Cannabis Screen (>50 NG/ML) 75.70 H Urines Urine Color (YEL,AMB,STR) YEL Urine Clarity (CLEAR) CLEAR Urine pH (5.0 - 8.0) 5.5 Ur Specific [place] (1.001 - 1.035) 1.025 Urine Protein (NEG,<30 MG/DL) NEG Urine Ketones (NEG) NEG Urine Nitrite (NEG) NEG Urine Bilirubin (NEG) NEG Urine Urobilinogen (0.1 - 1.0 EU/dl) 0.2 Ur Leukocyte Esterase (NEG) NEG Ur Microscopic EXAM NOT REQUIRED Urine Hemoglobin (NEG) NEG Urine Glucose (N MG/DL) NEG 02/26 1644 Chemistry Sodium (137 - 145 mmol/L) 137 Potassium (3.5 - 5.1 mmol/L) 4.1 Chloride (98 - 107 mmol/L) 98 Carbon Dioxide (22 - 30 mmol/L) 26 Anion Gap (5 - 16) 13 BUN (9 - 20 mg/dL) 16 Creatinine (0.7 - 1.2 mg/dL) 1.2 Estimated GFR (>60 ml/min) > 60 BUN/Creatinine Ratio (7 - 25 %) 13.3 Glucose (65 - 99 mg/dL) 97 Lactic Acid (0.7 - 2.1 mmol/L) 1.0 0.7 Calcium (8.4 - 10.2 mg/dL) 10.3 H Total Bilirubin (0.2 - 1.3 mg/dL) 0.7 AST (17 - 59 U/L) 17 ALT (21 - 72 U/L) 30 Alkaline Phosphatase (< 127 U/L) 93 C-Reactive Prot, Quant (<1.0 mg/dL) > 9.0 H Total Protein (6.3 - 8.2 g/dL) 7.5 Albumin (3.5 - 5.0 g/dL) 3.9 Globulin (1.9 - 4.2 gm/dL) 3.6 Albumin/Globulin Ratio (1.1 - 2.2 %) 1.1 Total PSA (0.00 - 4.00 ng/mL) Pending Hematology CBC w Diff NO MAN DIFF REQ WBC (4.8 - 10.8 /CUMM) 13.1 H RBC (4.70 - 6.10 /CUMM) 4.90 Hgb (14.0 - 18.0 G/DL) 12.7 L Hct (42 - 52 %) 39.2 L MCV (80.0 - 94.0 FL) 80.1 MCH (27.0 - 31.0 PG) 26.0 L RDW (11.5 - 14.5 %) 13.3 Plt Count (130 - 400 /CUMM) 395 MPV (7.4 - 10.4 FL) 7.4 Gran % (42.2 - 75.2 %) 71.3 Lymphocytes % (20.5 - 51.1 %) 20.4 L Monocytes % (1.7 - 9.3 %) 7.0 Eosinophils % (0 - 5 %) 0.9 Basophils % (0.0 - 2.0 %) 0.4 Absolute Granulocytes (1.4 - 6.5 /CUMM) 9.3 H Absolute Lymphocytes (1.2 - 3.4 /CUMM) 2.7 Absolute Monocytes (0.10 - 0.60 /CUMM) 0.9 H Absolute Eosinophils (0.0 - 0.7 /CUMM) 0.1 Absolute Basophils (0.0 - 0.2 /CUMM) 0 PUBS MCHC (33.0 - 37.0 G/DL) 32.5 L ESR Westergren (0 - 10 MM) 45 H Imaging Results: CT scan erosive changes anterolateral right side at T9 and T10 intrathoracic no invasion of the canal at least as seen in ctscans Other Results: Evidence of opiate Use blood Assessment/Plan Assessment/Plan Patient has an intrathoracic lesion involving the vertebral bodies of T9 and T10. This requires further documentation by MRI. At this point in time given in addition that he is neurologically intact there is no reason for neurosurgical intervention. Biopsy should be done either by interventional radiology or cardiothoracic via a thoracic approach Problem List: 1. Paraspinal mass 2. Opiate abuse, episodic 3. Back pain 4. IV drug user Other Findings/Comments: Pending MRI Copies To: MANAV PATEL,LAILA Consult Acknowledgment - Thank you for your consult request.
--- NOTE | 2017-02-27 14:24 | NUR ---
PT LEFT FLOOR VIA STRETCHER TO MRI, PREMEDICATED WITH PRN XANEX.
--- NOTE | 2017-02-27 15:03 | Cons- Infect Disease ---
General Information and HPI Consulting Request Date of Consult: 02/27/17 Requested By: BENJAMÍN EID MD Reason for Consult: Right paraspinal mass Source of Information: patient, old records History of Present Illness: This is a 51-year-old man with a history of active IV drug abuse, Hepatitis C, status post treatment with Interferon, status post L4-L5 laminectomy over 20 years prior to admission, seen in the emergency room one month prior to admission with a three-day history of right-sided back spasms, found to be afebrile with a white blood cell count of 15,[address] of the abdomen and pelvis, admitted on February 26 after returning to the emergency room with persistent right flank pain, radiating to the right upper quadrant, associated with constipation but with no associated fevers, chills, leg weakness or urinary complaints. On admission he was afebrile. Laboratory data revealed a white blood cell count of 13,000, ESR 45, BUN/creatinine 16 and 1.2, with normal liver enzymes. Urinalysis negative. Chest x-ray was negative. CT of the abdomen and pelvis without contrast revealed a new right paraspinal soft tissue mass, measuring 3 x 4 x 5 cm, centered at T9-T10 with partial erosion into the T9-T10 vertebral body cortices. He was followed off antibiotics and has remained afebrile. Allergies/Medications Allergies: Coded Allergies: Penicillins (Severe, TONGUE SWELLING 09/15/16) codeine (Intermediate, VOMITING 09/15/16) Home Med List: Alprazolam 1 MG TABLET 1 TAB PO TIDPRN ANXIETY (Reported) Dextroamphetamine/Amphetamine (Dextroamp-Amphetamin 20 MG Tab) 20 MG TABLET 1 TAB PO QPM OCD/ADHD (Reported) Naproxen Sodium (Aleve) 220 MG TABLET 1 TAB PO DAILY PAIN (Reported) Oxycodone HCl 30 MG TABLET 1 TAB PO ONCE PAIN (Reported) Past History Travel History Traveled to [place] past 21 day No Medical History Blood Transfusion Hx: No Neurological: NONE EENT: NONE Cardiovascular: ASHD Respiratory: NONE Gastrointestinal: NONE Hepatic: hepatitis C Renal: NONE Musculoskeletal: NONE Psychiatric: anxiety, opioid dependence, ADHD heroine overdose Endocrine: NONE Blood Disorders: NONE Cancer(s): NONE OBSTETRICS AND GYNECOLOGY PROFESSOR/Reproductive: NONE (not applicable) History of MRSA: No History of VRE: No History of CDIFF: No Isolation History: Standard Tetanus Vaccine: Surgical History Surgical History: L4-L5 laminectomy Family History Relations & Conditions If Any: FATHER, , Age 60+; Cause: Heart attack. FH: Crohn's disease FH: heart attack MOTHER, ; Cause: Stomach cancer. FH: stomach cancer UNCLE FH: colon cancer Psychosocial History Where Do You Live? Home Who Do You Live With? spouse Services at Home: None Primary Language: Amharic Smoking Status: Current Everyday Smoker (1 PPD Smoker-30 Pack Years) ETOH Use: occasional use Illicit Drug Use: history of IV heroin use Living Will? unknown Power of Chemical Economist/HCP? unknown Name of POA/HCP: unknown Other Social History: Not relevant Functional Ability ADLs Independent: dressing, eating, toileting, bathing. Ambulation: independent IADLs Independent: shopping, housework, finances, food prep, telephone, transportation , medication admin. Employment History Employment: Unemployed Profession/Employer: Multiple jobs Review of Systems Review of Systems All Other Systems: Reviewed and Negative Exam & Diagnostic Data Last 24 Hrs of Vital Signs/I&O Vital Signs Date Time Temp Pulse Resp B/P B/P Pulse O2 O2 Flow FiO2 Mean Ox Delivery Rate 02/27 0625 98.5 73 20 148/90 97 Room Air / 0024 98.0 75 20 138/90 97 Room Air 02/26 2356 96.5 82 18 139/87 98 Room Air / 1632 97.1 102 18 130/83 98 Room Air Intake & Output 02/27 1600 /08 0800 06/08 0000 Intake Total 480 1240 Output Total Balance 480 1240 Intake, IV 1000 Intake, Oral 480 240 Patient 180 lb 180 lb Weight Weight Reported by Patient Measurement Method Physical Exam Other Physical Findings: He is awake and alert in no acute distress. He is afebrile. Skin reveals no rash. HEENT exam is negative. Neck is supple with no adenopathy. Lungs are clear. Heart regular rhythm with no murmur. Abdomen is soft, nontender with positive bowel sounds. Back mild right CVA tenderness. Extremities no cyanosis , clubbing or edema. Neuro is without focality. Last 24 Hours of Lab Results: Laboratory Tests 02/27 02/26 0738 2234 Coagulation PT (9.4 - 12.5 SEC) 12.6 H INR (0.90 - 1.17) 1.20 H Hematology CBC w Diff NO MAN DIFF REQ WBC (4.8 - 10.8 /CUMM) 12.3 H RBC (4.70 - 6.10 /CUMM) 4.83 Hgb (14.0 - 18.0 G/DL) 12.7 L Hct (42 - 52 %) 38.7 L MCV (80.0 - 94.0 FL) 80.0 MCH (27.0 - 31.0 PG) 26.3 L RDW (11.5 - 14.5 %) 13.7 Plt Count (130 - 400 /CUMM) 339 MPV (7.4 - 10.4 FL) 8.0 Gran % (42.2 - 75.2 %) 69.0 Lymphocytes % (20.5 - 51.1 %) 20.2 L Monocytes % (1.7 - 9.3 %) 8.9 Eosinophils % (0 - 5 %) 1.5 Basophils % (0.0 - 2.0 %) 0.4 Absolute Granulocytes (1.4 - 6.5 /CUMM) 8.5 H Absolute Lymphocytes (1.2 - 3.4 /CUMM) 2.5 Absolute Monocytes (0.10 - 0.60 /CUMM) 1.1 H Absolute Eosinophils (0.0 - 0.7 /CUMM) 0.2 Absolute Basophils (0.0 - 0.2 /CUMM) 0.1 PUBS MCHC (33.0 - 37.0 G/DL) 32.8 L Toxicology Urine Opiates Screen (>2000 NG/ML) 2403.00 H Methadone Screen (>300 NG/ML) > 735 H Barbiturate Screen (>200 NG/ML) < 60 Ur Phencyclidine Scrn (>25 NG/ML) < 6.00 Amphetamines Screen (>1000 NG/ML) > 1450 H U Benzodiazepines Scrn (>200 NG/ML) > 800 H Urine Cocaine Screen (>300 NG/ML) < 50 Urine Cannabis Screen (>50 NG/ML) 75.70 H Urines Urine Color (YEL,AMB,STR) YEL Urine Clarity (CLEAR) CLEAR Urine pH (5.0 - 8.0) 5.5 Ur Specific [place] (1.001 - 1.035) 1.025 Urine Protein (NEG,<30 MG/DL) NEG Urine Ketones (NEG) NEG Urine Nitrite (NEG) NEG Urine Bilirubin (NEG) NEG Urine Urobilinogen (0.1 - 1.0 EU/dl) 0.2 Ur Leukocyte Esterase (NEG) NEG Ur Microscopic EXAM NOT REQUIRED Urine Hemoglobin (NEG) NEG Urine Glucose (N MG/DL) NEG 02/26 1644 Chemistry Sodium (137 - 145 mmol/L) 137 Potassium (3.5 - 5.1 mmol/L) 4.1 Chloride (98 - 107 mmol/L) 98 Carbon Dioxide (22 - 30 mmol/L) 26 Anion Gap (5 - 16) 13 BUN (9 - 20 mg/dL) 16 Creatinine (0.7 - 1.2 mg/dL) 1.2 Estimated GFR (>60 ml/min) > 60 BUN/Creatinine Ratio (7 - 25 %) 13.3 Glucose (65 - 99 mg/dL) 97 Lactic Acid (0.7 - 2.1 mmol/L) 1.0 0.7 Calcium (8.4 - 10.2 mg/dL) 10.3 H Total Bilirubin (0.2 - 1.3 mg/dL) 0.7 AST (17 - 59 U/L) 17 ALT (21 - 72 U/L) 30 Alkaline Phosphatase (< 127 U/L) 93 C-Reactive Prot, Quant (<1.0 mg/dL) > 9.0 H Total Protein (6.3 - 8.2 g/dL) 7.5 Albumin (3.5 - 5.0 g/dL) 3.9 Globulin (1.9 - 4.2 gm/dL) 3.6 Albumin/Globulin Ratio (1.1 - 2.2 %) 1.1 Total PSA (0.00 - 4.00 ng/mL) 0.98 Hematology CBC w Diff NO MAN DIFF REQ WBC (4.8 - 10.8 /CUMM) 13.1 H RBC (4.70 - 6.10 /CUMM) 4.90 Hgb (14.0 - 18.0 G/DL) 12.7 L Hct (42 - 52 %) 39.2 L MCV (80.0 - 94.0 FL) 80.1 MCH (27.0 - 31.0 PG) 26.0 L RDW (11.5 - 14.5 %) 13.3 Plt Count (130 - 400 /CUMM) 395 MPV (7.4 - 10.4 FL) 7.4 Gran % (42.2 - 75.2 %) 71.3 Lymphocytes % (20.5 - 51.1 %) 20.4 L Monocytes % (1.7 - 9.3 %) 7.0 Eosinophils % (0 - 5 %) 0.9 Basophils % (0.0 - 2.0 %) 0.4 Absolute Granulocytes (1.4 - 6.5 /CUMM) 9.3 H Absolute Lymphocytes (1.2 - 3.4 /CUMM) 2.7 Absolute Monocytes (0.10 - 0.60 /CUMM) 0.9 H Absolute Eosinophils (0.0 - 0.7 /CUMM) 0.1 Absolute Basophils (0.0 - 0.2 /CUMM) 0 PUBS MCHC (33.0 - 37.0 G/DL) 32.5 L ESR Westergren (0 - 10 MM) 45 H Last 24 Hours of Socrates Results: Blood cultures 2 February 27 pending Diagnostic Data Recent Imaging Findings: Chest x-ray negative. CT of the abdomen and pelvis without contrast February 26 revealed a new right paraspinal soft tissue mass, measuring 3 x 4 x 5 cm, centered at T9-T10 with partial erosion into the T9-T10 vertebral body cortices Assessment/Plan Assessment/Plan Impression: This is a 51-year-old man with a history of hepatitis C and active IV drug abuse admitted on February 26 with a six-week history of right flank pain, associated with constipation, found to be afebrile with an elevated white blood cell count and with a CT of the abdomen and pelvis revealing a right paraspinal soft tissue mass at T9-T10 with partial erosion into the T9-T10 vertebral body cortices, which was not evident on a prior CT scan 1 month ago. Given his history of IV drug abuse I suspect that this represents an abscess secondary to vertebral osteomyelitis secondary to seeding from an occult bacteremia. A malignant process seems unlikely given the fact that a CT scan 1 month prior to admission was negative. As he is stable he can be followed off antibiotics pending further evaluation of this paraspinal process. He has a history of Hepatitis C, treated with Interferon, and further evaluation of this may be necessary. Suggestion: 1. Repeat HIV 2. Would obtain Hepatitis C serology/PCR (can do as an outpatient) 3. Await MRI of the thoracolumbar spine (scheduled for later today) 4. Would pursue CT-guided aspiration of the right paraspinal mass (apparently tentatively scheduled for the a.m.) 5. Continue to follow off antibiotics pending above Consult Acknowledgment - Thank you for your consult request.
[2017-02-27 16:39] VITALS: BP 140/82
--- NOTE | 2017-02-27 17:57 | MRI REPORT ---
EXAMINATION: MR CERVICAL SPINE WITHOUT AND WITH CONTRAST MR THORACIC SPINE WITHOUT AND WITH CONTRAST MR LUMBAR SPINE WITHOUT AND WITH CONTRAST CLINICAL INFORMATION: Mass seen on CT abdomen and pelvis. Severe back pain. Assess for metastatic neoplasm versus abscess. COMPARISON: CT scan of the abdomen and pelvis 01/20/2017. Single sagittal T2 sequence from MRI scan the cervical spine 12/06/2005. TECHNIQUE: MRI scans of the cervical, thoracic and lumbar spines were obtained using routine sequences without and with contrast. Intravenous contrast: OptiMARK 17 mL. FINDINGS: MRI Cervical Spine: VERTEBRAL BODIES AND PARASPINAL SOFT TISSUES: There is anatomic alignment of the vertebral bodies. There is narrowing of intervertebral disc height at C6-C7 and there are predominantly fatty endplate signal changes. There are degenerative endplate contour changes. There is mild narrowing of intervertebral disc height at C5-C6. There are mild edematous endplate signal changes anteriorly at C4-C5 and C5-C6. Vertebral body heights are maintained. There are no compression fractures. Overall, marrow signal is homogenous. The paravertebral structures are unremarkable. CERVICOMEDULLARY JUNCTION AND VISUALIZED POSTERIOR FOSSA: The craniocervical and posterior fossa structures are normal. Accounting for artifact, spinal cord signal appears normal. There is mild enhancement of the edematous endplate signal changes. No abnormal enhancement is noted within the spinal canal or spinal cord. SPINAL LEVELS: C2-C3: Disc contour is normal. There is no spinal cord compression or central stenosis. The neural foramina are patent. C3-C4: There is a small posterior disc protrusion which effaces CSF ventral to the spinal cord. There is no spinal cord compression or central stenosis. The neural foramina are patent. C4-C5: There is a broad-based posterior disc protrusion which effaces CSF ventral to the spinal cord. There is no spinal cord compression. There is mild central stenosis There are uncovertebral osteophytes. The neural foramina are patent. C5-C6: There is a broad-based posterior disc osteophyte complex which effaces CSF ventral to the spinal cord. There is minimal compression of the cord and there is [id number] central stenosis. There are prominent uncovertebral osteophytes. There is severe left and moderate right foraminal narrowing. C6-C7: There is a broad-based posterior disc protrusion which is slightly more prominent to the right of midline. There is effacement of CSF ventral to the spinal cord with mild compression of the cord. There is [id number] central stenosis. There are uncovertebral osteophytes and there is moderate bilateral foraminal narrowing. C7-T1: There is a small posterior disc protrusion. There is no central stenosis or spinal cord compression and the neural foramina are patent. MRI Thoracic Spine: VERTEBRAL BODIES AND PARASPINAL STRUCTURES: There is anatomic alignment of the vertebral bodies. There is multilevel narrowing of intervertebral disc height in the mid thoracic spine. There is intense STIR signal in the central and right sided aspects of the bodies of T9-T10, corresponding to areas of abnormal density on the CT scan. There is mixed T2 signal in these vertebrae, and they have diffusely decreased T1 signal. The vertebral bodies at this level have normal height and there are no compression fractures. Vertebral body heights levels also maintained. There are a few foci of increased T1 and T2 signal in multiple vertebrae consistent with focal fat or hemangiomata. There is soft tissue fullness which measures approximately 4.3 x 2.6 cm in the right paravertebral soft tissues at the level of T9-T10 extending into the right and anterior aspects of these vertebral bodies. There is more diffuse increased fullness of the paravertebral soft tissues anteriorly at this level. These findings correspond to the soft tissue and osseous abnormalities demonstrated on the CT scan. Following intravenous contrast administration there is intense and slightly heterogenous enhancement in the soft tissues as well as in the T9 and T10 vertebral bodies and right-sided pedicles. There are serpiginous areas of low signal post contrast within the soft tissues, which may be consistent with small areas of fluid and the findings are consistent with a paravertebral phlegmon with developing abscesses. Intervertebral disc at this level does not demonstrate significant enhancement. There is trace right pleural effusion. The paravertebral soft tissues at other levels are unremarkable. There are likely mildly prominent retrocrural lymph nodes at the level of T10 on the right. The conus is at the level of L1. Accounting for artifact, spinal cord signal appears normal. SPINAL LEVELS: C7-T1 through T6-T7: Posterior disc contours are essentially normal. There is no central stenosis or spinal cord compression. There is no abnormal enhancement. T7-T8: There is a small posterior disc osteophyte complex. There is no central stenosis or foraminal narrowing. T8-T9: The disc configuration is normal. The central canal and neural foramina are widely patent. The facet joints are normal. T9-T10: Posterior disc contour is normal. There is no spinal cord compression or central stenosis. The neural foramina appear patent. T10-T11 through T12-L1: Disc contours appear normal. There is no central stenosis. There is no spinal cord compression or distortion of the thecal sac. The neural foramina appear patent. MRI Lumbar Spine: VERTEBRAL BODIES AND PARASPINAL STRUCTURES: There is anatomic alignment of the vertebral bodies. There is partial lumbarization of S1 with a rudimentary S1-S2 intervertebral disc. There is narrowing of intervertebral disc height at L4-L5 with loss of signal, and there are mixed Modic type I and type II endplate changes anteriorly with degenerative endplate contour changes. Intervertebral disc height and signal are also decreased at L3-L4. There are no compression fractures and vertebral body heights are maintained. Overall, marrow signal is homogenous. There is a large area of increased T1 and T2 signal in the body of T12 which does not demonstrate enhancement and is consistent with a hemangioma. The visualized paravertebral structures are normal in the lumbar region. The bladder is moderately distended. CONUS MEDULLARIS AND CAUDA EQUINA: Normal, terminating at the level of L1. The cauda equina nerve roots and filum terminale appear normal SPINAL LEVELS: L1-L2: There is mild bilateral facet arthropathy. Disc contour is normal. There is no central stenosis or foraminal narrowing. L2-L3: There is mild bilateral facet arthropathy. Disc contour is normal. There is no central stenosis or foraminal narrowing. L3-L4: There is a diffuse disc bulge with more focal protrusions in the right greater than left neural foramina. There is impingement on the exiting right L3 nerve root. There is bilateral facet arthropathy. There is mild central stenosis. L4-L5: There is moderate bilateral facet arthropathy. There is mild ligamenta flava hypertrophy. There is a left-sided disc protrusion extending far laterally with impingement on the exiting left L4 nerve root. There is narrowing of the subarticular recesses bilaterally. There is no central stenosis. L5-S1: There is mild left and moderate right facet arthropathy. There is a posterior disc protrusion with an annular fissure. The neural foramina are patent and there is no central stenosis. There is mild enhancement around the right facet joint at this level. There is mild epidural venous congestion following intravenous contrast administration. IMPRESSION: MRI cervical spine: 1. There are multilevel degenerative changes which are most severe at C5-C6 and C6-C7. 2. There is no spinal cord compression or significant central stenosis. 3. There is multilevel foraminal narrowing, most severe on the left at C5-C6 with milder changes at other levels as described above. 4. There is no abnormal enhancement. 5. Vertebral body heights and signal are overall normal without evidence of an infiltrative or infective process. MRI thoracic spine: 1. There is paravertebral soft tissue fullness on the right at the level of T9-T10 which demonstrates enhancement and has some areas of serpiginous low T1 signal, and the findings are consistent with a phlegmon with developing abscess. There is abnormal signal in the right aspect of the vertebral bodies of T9-T10, consistent with developing osteomyelitis. There are no areas of abnormal signal in other vertebral bodies to suggest metastatic disease, and the findings are most consistent with an infective process. 2. There are no compression fractures of the vertebral bodies at present. 3. There is a small right sided pleural effusion. There appear to be retrocrural lymph nodes at the level of T10 on the right. MRI lumbar spine: 1. There is spondylosis at L4-L5 with milder changes at L3-L4. 2. There is a left-sided disc protrusion extending far laterally at L4-L5 with impingement on exiting left L4 nerve root. 3. There is a right foraminal disc protrusion at L3-L4 with impingement on the exiting right L3 nerve root. 4. There is no signal from the osseous structures to suggest an infiltrative or infective process.
--- NOTE | 2017-02-27 18:45 | Event Note ---
Event Note Event Note: MRI spine for Mr. Caldwell returned and shows evidence of phlegmon with developing abscess in the thoracic spine and disc protrusion with nerve impingement in the lumbar spine among other findings. These findings were concerning and prompted call to Dr. Danica MD who was salmon troll fisher for neurosurgery. Case discussed with him and he will make Dr. Ephraim MD aware. No change in management for now, will await further suggestions from neurosurgery.
[2017-02-27 21:59] VITALS: BP 130/80
--- NOTE | 2017-02-28 05:44 | PN- Housestaff ---
THIAGO PATEL,IDANIA 02/28/17 0544: Subjective Follow-up For: Paraspinal mass Subjective: Patient seen and examined this morning. No events reported overnight. He doesn't feel so good this morning but reports back pain is well controlled with current regimen. No changes in his symptoms compared to yesterday. Denies any sensory deficits, focal weakness, gait imbalance or paresthesia. He remains HDS and afebrile. Awaiting IR guided biopsy this morning. No recent fever, chills, chest discomfort, palpitations, dyspnea abdominal pain, nausea, vomiting, headache. Review of Systems Constitutional: Reports: see HPI. Objective Last 24 Hrs of Vital Signs/I&O Vital Signs Date Time Temp Pulse Resp B/P B/P Pulse O2 O2 Flow FiO2 Mean Ox Delivery Rate 02/28 0635 97.8 80 20 132/66 95 Room Air 02/27 2159 97.1 79 20 130/80 98 Room Air 02/27 1639 98.1 92 20 140/82 98 Room Air Intake & Output 02/28 0800 02/28 0000 02/27 1600 Intake Total 350 480 Output Total Balance 350 480 Intake, Oral 350 480 Physical Exam General Appearance: Alert, Oriented X3, Cooperative, No Acute Distress Other Physical Findings: Skin No Rashes HEENT Atraumatic, Mucous Membr. moist/pink Neck Supple Cardiovascular Regular Rate, Normal S1, Normal S2, No Murmurs, Gallops, Rubs Lungs Clear to Auscultation Abdomen Soft, No Tenderness, Positive Bowel Sounds Neurological Strength at 5/5 X4 Ext, Sensation Intact, Reflexes 2+ Extremities No Clubbing, No Cyanosis, No Edema Rectal Guiac Negative, Normal Sphincter Tone Current Medications: Current Medications Sig/Niru Start time Last Medication Dose Route Stop Time Status Admin Acetaminophen 650 MG Q6P PRN 02/265 AC PO Alprazolam 1 MG TIDPRN PRN 02/26 2315 AC 02/27 PO 03/05 2314 1423 Ibuprofen 600 MG .STK-MED ONE 02/27 1640 DC PO 02/27 1641 Ibuprofen 600 MG .STK-MED ONE 02/27 0948 DC PO 02/27 0949 Ibuprofen 600 MG Q6P PRN 02/26 2245 AC 02/27 PO 1641 Ketorolac 15 MG .STK-MED ONE 02/27 1237 DC Tromethamine IM 02/27 1238 Ketorolac 15 MG Q6P PRN 02/26 2245 AC 02/28 Tromethamine IV 0625 Nicotine 14 MG DAILY 02/27 1000 AC TOP Patient Medication 1 ED .STK-MED ONE 02/27 1343 OR Teaching ED 02/27 1344 Polyethylene Glycol 17 GM DAILY 02/27 1000 AC 02/27 PO 0942 Senna/Docusate Sodium 1 TAB BID 02/26 2230 AC 02/27 PO 2120 Simethicone 80 MG Q4P PRN 02/27 0830 AC 02/27 PO 0947 Last 24 Hrs of Lab/Socrates Results Last 24 Hrs of Labs/Mics: Laboratory Tests 02/28/17 0621: CBC w Diff Pending, WBC Pending, RBC Pending, Hgb Pending, Hct Pending, MCV Pending, MCH Pending, RDW Pending, Plt Count Pending, MPV Pending, PUBS MCHC Pending, Hepatitis A IgM Ab Pending, Hep Bs Antigen Pending, Hep B Core IgM Ab Conf Pending, Hepatitis C Antibody Pending 02/27/17 0738: PT 12.6 H, INR 1.20 H, CBC w Diff NO MAN DIFF REQ, RBC 4.83, MCV 80.0, MCH 26.3 L, RDW 13.7, MPV 8.0, Gran % 69.0, Lymphocytes % 20.2 L, Monocytes % 8.9, Eosinophils % 1.5, Basophils % 0.4, Absolute Granulocytes 8.5 H, Absolute Lymphocytes 2.5, Absolute Monocytes 1.1 H, Absolute Eosinophils 0.2, Absolute Basophils 0.1, PUBS MCHC 32.8 L Microbiology 02/27 1836 URINE ROUT: Urine Culture - RECD 02/27 0855 BLOOD: Blood Culture - RECD 02/27 0750 BLOOD: Blood Culture - CAN Cancelled: Quantity not sufficient for both blood culture bottles. 02/27 0735 BLOOD: Blood Culture - RECD Assessment/Plan Assessment: Mr. Caldwell is a 51 y/o M with PMHx of history of IVDA c/b multiple episodes of heroin overdose, ADHD and L4-L5 laminectomy who presents with right back and flank pain, with CT scan revealing new right paraspinal soft tissue mass centered at T9-T10. # Epidural abscess Mass seen at T9-T10 on CT abd/pelvis, most likely an epidural abscess in the setting of IV drug use and its acute development. MRI done yest also consistent with abscess and developing osteomyelitis. Patient continues to remain HDS and afebrile. * Vitals per protocol, monitor for SIRS * Monitor CBC, trend WBC - decreasing * Neurosurgery (Dr. Ye) following, appreciate recs * ID following, appreciate recs * Neurochecks Q4H. * Follow panculture - NGTD * CT-guided biopsy today * Check PSA level - WNL * GI referral for colonoscopy outpatient * Adequate pain control with Toradol 15 mg IV Q6H PRN for severe pain, Motrin 600 mg PO Q6H PRN for moderate pain, and Tylenol 650 mg PO Q6H PRN for mild pain * Continue bowel regimen for constipation #Polysubstance abuse: Utox positive for opiate, methadone, amphetamine, benzo and cannabis. He carries a hx of IV drug use (including) resulting in multiple admissions for overdose in 2016. He reportedly had been in remission for 16 years until he relapsed in 2016. Last IV heroin use was about 3 weeks ago. * Watch for opiate/benzo w/d * Consider psych and social work consult. # Tobacco dependence * Nicotine patch daily * Smoking cessation counseling provided - Regular (NPO starting midnight) - Mild pain pathway - DVT ppx with ALPs - Full code Problem List: 1. Right-sided back pain 2. Nicotine dependence 3. Paraspinal mass 4. Right flank pain 5. Abdominal pain 6. Amphetamine abuse 7. Benzodiazepine abuse 8. Opiate abuse, episodic Pain Ratin Pain Location: Right back/flank Pain Goal: Pain 4 or less Pain Plan: Mild pathway Treat abscess Tomorrow's Labs & Rationales: CBC - leukocytosis BENJAMÍN EID MD 02/28/17 1042: Attending MD Review Statement Attending Statement Attending MD Statement: examined this patient, discuss w/resident/PA/TIMING INSPECTOR, agreed w/resident/PA/TIMING INSPECTOR, reviewed EMR data (avail) Attending Assessment/Plan: 51M PMH polysubstance abuse including IVDU presenting with new onset lower back pain radiating to his right flank and right abdomen, found to have T9-T10 mass on CT. Patient has a history of back pain but has not experienced any in several weeks/months until this episode, and reports that this episode is different from others. He reports a tick bite 3 days before the onset of the back pain. There is no neurological deficit. He is currently comfortable and pain is controlled. MRI confirmed paraspinal abscess with vertebral osteomyelitis. 1. Paraspinal mass 2. Lower back pain 3. Polysubstance abuse 4. Vertebral osteomyelitis Plan - Due to unavailability of CT for guided biopsy of spinal mass, will transfer patient to [facility] for further care. Accepting physician on hospitalist service is Dr. Vaughn. - Continue to hold antibiotics until biopsy is complete - Continue home medications
[2017-02-28 06:35] VITALS: BP 132/66
[2017-02-28 08:22] LABS: ABSOLUTE BASOPHIL COUNT 0 /CUMM (0.0-0.2); ABSOLUTE EOSINOPHIL COUNT 0.2 /CUMM (0.0-0.7); ABSOLUTE GRANULOCYTE CT 7.8 /CUMM (1.4-6.5); ABSOLUTE LYMPH COUNT 2.4 /CUMM (1.2-3.4); ABSOLUTE MONOCYTE COUNT 1.1 /CUMM (0.10-0.60); BASOPHIL % 0.4 % (0.0-2.0); EOSINOPHIL % 1.7 % (0-5); GRANULOCYTE % 67.2 % (42.2-75.2); HEMATOCRIT 39.5 % (42-52); MEAN CORPUSCULAR HGB 26.2 PG (27.0-31.0); MEAN CORPUSCULAR HGB CONC 32.6 G/DL (33.0-37.0); MEAN CORPUSCULAR VOLUME 80.5 FL (80.0-94.0); MEAN PLATELET VOLUME 8.2 FL (7.4-10.4); PLATELET COUNT 374 /CUMM (130-400); RBC DISTRIBUTION WIDTH 13.8 % (11.5-14.5); RED BLOOD CELL CT 4.91 /CUMM (4.70-6.10); WHITE BLOOD CELL COUNT 11.6 /CUMM (4.8-10.8)
--- NOTE | 2017-02-28 10:10 | Patient Discharge Instructions ---
Discharge Instructions General Discharge Information You were seen/treated for: Spinal abscess with osteomyelitis Special Instructions: Please follow up with your doctor within a week of discharge. Acute Coronary Syndrome Inclusion Criteria At DC or during hospital stay patient has or had the following: ACS DIAGNOSIS No Discharge Core Measures Meds if any: Prescribed or Continued at Discharge Meds if any: NOT Prescribed or Continued at Discharge Congestive Heart Failure Inclusion Criteria At DC or during hospital stay patient has or had the following: CHF DIAGNOSIS No Discharge Core Measures Meds if any: Prescribed or Continued at Discharge Meds if any: NOT Prescribed or Continued at Discharge Cerebrovascular accident Inclusion Criteria At DC or during hospital stay patient has or had the following: CVA/TIA Diagnosis No Discharge Core Measures Meds if any: Prescribed or Continued at Discharge Meds if any: NOT Prescribed or Continued at Discharge Venous thromboembolism Inclusion Criteria VTE Diagnosis No VTE Type NONE VTE Confirmed by (Test) NONE Discharge Core Measures - Per Current guidelines, there needs to be overlap - treatment for the first 5 days of Warfarin therapy. - If discharged on Warfarin prior to 5 days of - overlap therapy, the patient will need to be - assessed for post discharge needs including - *Post discharge parental anticoagulation - *Warfarin and/or parental anticoagulation education - *Follow up date to check INR post discharge At least 5 days overlap therapy as Inpatient No Meds if any: Prescribed or Continued at Discharge Note: Overlap Therapy is Warfarin and Anticoagulant Meds if any: NOT Prescribed or Continued at Discharge
--- NOTE | 2017-02-28 10:37 | PN- Student ---
Subjective Subjective: He had difficulty sleeping last night and his right flank and RUQ pain is worst in the morning and subsides after administration of pain medication. Patient appears to be frustrated and anxious because he wants to know what is causing the pain. Denies nausea, vomiting, chills, dyspnea, chest pain, and motor and sensory deficits in LE. Current Medications Sig/Niru Start time Last Medication Dose Route Stop Time Status Admin Acetaminophen 650 MG Q6P PRN 02/26 2245 AC 02/28 PO 1007 Alprazolam 1 MG TIDPRN PRN 02/26 2315 AC 02/28 PO 03/05 2314 1007 Ibuprofen 600 MG .STK-MED ONE 02/27 1640 DC PO 02/27 1641 Ibuprofen 600 MG Q6P PRN 02/26 2245 AC 02/27 PO 1641 Ketorolac 15 MG .STK-MED ONE 02/28 0008 DC Tromethamine IM 02/28 0009 Ketorolac 15 MG .STK-MED ONE 02/27 1237 DC Tromethamine IM 02/27 1238 Ketorolac 15 MG Q6P PRN 02/26 2245 AC 02/28 Tromethamine IV 0625 Nicotine 14 MG DAILY 02/27 1000 AC TOP Patient Medication 1 ED .STK-MED ONE 02/27 1343 DC Teaching ED 02/27 1344 Polyethylene Glycol 17 GM DAILY 02/27 1000 AC 02/28 PO 1003 Senna/Docusate Sodium 1 TAB BID 02/26 2230 AC 02/28 PO 1002 Simethicone 80 MG Q4P PRN 02/27 0830 AC 02/28 PO 1002 Objective Objective: Physical exam: General: alert and oriented x3, no acute distress Cardiac: regular rate and rhythm. no murmurs Pulm: clear to auscultation. no wheezing, rales, rhonchi Abd: normoactive bowel sounds, tender to palpation in RUQ Back: pain upon palpation of thoracic spine Neuro: 5/5 muscle strength in LE Diagnostics: MRI cervical spine: 1. There are multilevel degenerative changes which are most severe at C5-C6 and C6-C7. 2. There is multilevel foraminal narrowing, most severe on the left at C5-C6 with milder changes at other levels as described above. MRI thoracic spine: 1. There is paravertebral soft tissue fullness on the right at the level of T9-T10 which demonstrates enhancement and has some areas of serpiginous low T1 signal, and the findings are consistent with a phlegmon with developing abscess. There is abnormal signal in the right aspect of the vertebral bodies of T9-T10, consistent with developing osteomyelitis. There are no areas of abnormal signal in other vertebral bodies to suggest metastatic disease, and the findings are most consistent with an infective process. 2. There is a small right sided pleural effusion. There appear to be retrocrural lymph nodes at the level of T10 on the right. MRI lumbar spine: 1. There is spondylosis at L4-L5 with milder changes at L3-L4. 2. There is a left-sided disc protrusion extending far laterally at L4-L5 with impingement on exiting left L4 nerve root. 3. There is a right foraminal disc protrusion at L3-L4 with impingement on the exiting right L3 nerve root. Vital Signs Date Time Temp Pulse Resp B/P B/P Pulse O2 O2 Flow FiO2 Mean Ox Delivery Rate 02/28 0635 97.8 80 20 132/66 95 Room Air 02/27 2159 97.1 79 20 130/80 98 Room Air 02/27 1639 98.1 92 20 140/82 98 Room Air Intake & Output 02/28 1600 02/28 0800 02/28 0000 Intake Total 0 350 Output Total Balance 0 350 Intake, IV 0 Intake, Oral 0 350 Number 0 Bowel Movements Results Results: Laboratory Tests 02/28/17 0621: CBC w Diff NO MAN DIFF REQ, RBC 4.91, MCV 80.5, MCH 26.2 L, RDW 13.8, MPV 8.2, Gran % 67.2, Lymphocytes % 21.1, Monocytes % 9.6 H, Eosinophils % 1.7, Basophils % 0.4, Absolute Granulocytes 7.8 H, Absolute Lymphocytes 2.4, Absolute Monocytes 1.1 H, Absolute Eosinophils 0.2, Absolute Basophils 0, PUBS MCHC 32.6 L, Hepatitis A IgM Ab NONREACTIVE, Hep Bs Antigen NONREACTIVE, Hep B Core IgM Ab Conf NONREACTIVE, Hepatitis C Antibody REACTIVE H, HIV 1&2 Ab Western Blot NONREACTIVE 02/27/17 0738: PT 12.6 H, INR 1.20 H, CBC w Diff NO MAN DIFF REQ, RBC 4.83, MCV 80.0, MCH 26.3 L, RDW 13.7, MPV 8.0, Gran % 69.0, Lymphocytes % 20.2 L, Monocytes % 8.9, Eosinophils % 1.5, Basophils % 0.4, Absolute Granulocytes 8.5 H, Absolute Lymphocytes 2.5, Absolute Monocytes 1.1 H, Absolute Eosinophils 0.2, Absolute Basophils 0.1, PUBS MCHC 32.8 L 02/26/17 2234: Urine Opiates Screen 2403.00 H, Methadone Screen > 735 H, Barbiturate Screen < 60, Ur Phencyclidine Scrn < 6.00, Amphetamines Screen > 1450 H, U Benzodiazepines Scrn > 800 H, Urine Cocaine Screen < 50, Urine Cannabis Screen 75.70 H, Urine Color YEL, Urine Clarity CLEAR, Urine pH 5.5, Ur Specific [place] 1.025, Urine Protein NEG, Urine Ketones NEG, Urine Nitrite NEG, Urine Bilirubin NEG, Urine Urobilinogen 0.2, Ur Leukocyte Esterase NEG, Ur Microscopic EXAM NOT REQUIRED, Urine Hemoglobin NEG, Urine Glucose NEG 02/26/17 2042: Lactic Acid 1.0 02/26/17 1644: Anion Gap 13, Estimated GFR > 60, BUN/Creatinine Ratio 13.3, Glucose 97, Lactic Acid 0.7, Calcium 10.3 H, Total Bilirubin 0.7, AST 17, ALT 30, Alkaline Phosphatase 93, C-Reactive Prot, Quant > 9.0 H, Total Protein 7.5, Albumin 3.9, Globulin 3.6, Albumin/Globulin Ratio 1.1, Total PSA 0.98, CBC w Diff NO MAN DIFF REQ, RBC 4.90, MCV 80.1, MCH 26.0 L, RDW 13.3, MPV 7.4, Gran % 71.3, Lymphocytes % 20.4 L, Monocytes % 7.0, Eosinophils % 0.9, Basophils % 0.4, Absolute Granulocytes 9.3 H, Absolute Lymphocytes 2.7, Absolute Monocytes 0.9 H, Absolute Eosinophils 0.1, Absolute Basophils 0, PUBS MCHC 32.5 L, ESR [place] 45 H Microbiology 02/27 1836 URINE ROUT: Urine Culture - RES 02/27 0855 BLOOD: Blood Culture - RECD 02/27 0750 BLOOD: Blood Culture - CAN Cancelled: Quantity not sufficient for both blood culture bottles. 02/27 0735 BLOOD: Blood Culture - RECD 02/27 0550 LOWER RESP: Respiratory Culture - COLB 02/27 0550 LOWER RESP: Gram Stain - COLB Assessment/Plan Assessment: 51 yo male with PMHx of heroine overdose, IVDU, L4-L5 laminectomy, ADHD, OCD presented to ER on 02/26/17 for worsening right flank pain of 3 weeks. PE significant for pain upon palpation of lower back. MRI of cervical, thoracic, and lumbar spine shows phlegmon with developing abscess in thoracic spine and disc protrusion with nerve impingement in lumbar spine (L4-L5). Osteomyelitis Based on history of IVDU, localized pain and tenderness over thoracic spine, elevated WBC and CRP, and MRI findings, it is most suggestive for osteomyelitis. Most common agent is S. aureus. and risk factors include IVDU, immunosuppresive, HIV, bacteremia, and DM. Lumbar spine is most commonly infected, followed by thoracic and cervical spine. Presentation is localized pain and tenderness of involved vertebrae with slow progression over 3 weeks to 3 months. With a history of IVDU, gram negative organisms, such as Pseudomonas aeruginosa, are the most causative agents. Plan: 1. Developing abscess/osteomyelitis * Transfer to [place] for CT-guided biopsy to determine causative agent. Begin antibiotic treatment (4-8 weeks) for agent(s) uncovered. If abscess persists, consider needle aspiration and changing antibiotics. * Recheck vitals and labs - WBC, Hgb, Hct, CRP * Manage pain with IV NSAIDs and tylenol PRN. If pain persists, can consider the addition of corticosteroids. 2. IVDU * Psych consult * Testing for HIV, Hepatitis B and C * Continue seeing psychiatrist 1x/month 3. Chronic conditions - ADHD, OCD * Continue home medications Other: -Outpatient colonoscopy due to positive family hx -See a PCP annually -See a PCP annually
--- NOTE | 2017-02-28 10:59 | Discharge Summary ---
Visit Information Visit Dates Admission Date: 02/26/17 Discharge Date: 02/28/17 Hospital Course Course Attending Physician: BENJAMÍN EID MD Primary Care Physician: PATIENT HAS NO PRIMARY CARE DR Consulting Request: 1 Consulting Specialty: Infectious Disease Consulting Physician: VALENTINA BERRY MD Reason for Consult: Paraspinal mass/abscess Consulting Request: 2 Consulting Specialty: Neurosurgery Consulting Physician: Dr. Ye Reason for Consult: thoracic paraspinal mass/abscess Hospital Course: Mr. Caldwell is a 51-year-old man with a history of active IV drug abuse, multiple episodes of heroin overdose, ADHD, Hepatitis C status post treatment with Interferon, status post L4-L5 laminectomy over 20 years ago. He was in his usual state of health until 01/09/2017, 6 weeks prior to presentation, when he developed pain in his right back and flank with radiation to his abdomen. The pain was described pain as an ache or a "big muscle spasm" in his back. He claims the pain started shortly after he was bitten by a tick on the right side of his back (The tick was subsequently removed by his partner). Shortly afterwardsHe also had associated bloating feeling in his stomach. The pain progressively worsened over the next few days and the patient initially presented to [facility] ED on 01/20/17. A CT Abdomen/Pelvis performed on 01/20/17 was unrevealing. He was sent home from the ED and was given Flexeril and Toradol with some transient improvement of the pain. However his pain progressively worsened over the next few weeks. Currently his abdominal pain is constant and gets up to 10/10 in intensity at times and involves the right flank to the hip. He denied leg numbness, tingling or weakness of any limbs and bladder/bowel incontinence. He also developed constipation about three weeks prior to current presentation, but denied nausea, vomiting, blood in the stool and changes in stool. He reported weight loss of approximately 6 lbs over the preceding 3 weeks, noting that he was careful with what he eats because of the bloating and abdominal pain. He stated that his appetite was been good however, and denied fever or chills. Of note, Mr. Caldwell has a history of opioid dependence and IV heroin use. He was in remission for 16 years up until 2016 when he relapsed. Since then he has had five presentations to the [facility] ER for heroin overdose, the most recent one on 12/10/16. He admited to using IV drugs 3 weeks prior to current admission. Vital signs on presentation: afebrile Temp 97.1F, tachycardic Pulse 102 bpm, Respiratory rate 18/min, Blood pressure 130/80 mmhg, PO2 98% on room air. Physical exam at presentation General: Patient seated comfortably not in acute distress cooperative Chest: Clear lungs bilaterally Abdomen: No palpable mass, no tenderness negative Pereira's sign Back: Paraspinal tenderness more on the right, no palpable mass no skin changes Rectal: Normal sphincter tone, normal stool consistency in the vault, negative guaiac test Extremities: No cyanosis clubbing or edema Neurological: Intact sensation across all dermatomes from T6 all the way down, normal knee reflexes and normal power bilaterally Laboratory data revealed a white blood cell count of 13,000, ESR 45, BUN/ creatinine 16 and 1.2, with normal liver enzymes. Urinalysis negative. Urine toxicology was positive for opiates and cannabis and amphetamines . Hepatitis C antibody screen was positive and his HIV screening was negative. Chest x-ray was negative. CT of the abdomen and pelvis without contrast revealed a new right paraspinal soft tissue mass, measuring 3 x 4 x 5 cm, centered at T9-T10 with partial erosion into the T9-T10 vertebral body cortices. An MRI of his thoracic spine revealed features consistent with a developing paravertebral abscess in T9-T10, and developing osteomyelitis. He was admitted for treatment of the thoracic paraspinal abscess and vertebral osteomyelitis at T9-T10. 1. Thoracic paraspinal mass/abscess with vertebral osteomyelitis He was reviewed by infectious disease [facility] consultant Valentina Berry MD and followed off antibiotics with plans for IR guided biopsy and antibiotics once a biopsy/aspirate has been obtained for culture. He remained afebrile on admission and his WBC trended slightly downward from 12.3 to 11.6 off antibiotics. He was also reviewed by neurosurgery. His neurological status was stable and he had no complaints of weakness of any limbs, tingling or incontinence while on admission. His pain was controlled with IV Toradol and Tylenol. He was planned for CT-guided biopsy of his paraspinal abscess by interventional radiologist. However on the morning of the procedure the CT scan machine was broken, so the procedure could not be done. On account of this he was transferred to tertiary facility in [facility] under Dr. Vaughn for CT-guided paraspinal abscess biopsy and further management of his vertebral osteomyelitis. Blood cultures were collected but results are pending at the time of transfer. Antibiotics continued to be held. 2. Polysubstance abuse His urine toxicology was positive for opiate, methadone, amphetamine, benzodiazepines and cannabis. He admits to IV drug abuse with last episode 3 weeks prior to presentation. He showed no signs of acute withdrawal while on admission. Allergies: Coded Allergies: Penicillins (Severe, TONGUE SWELLING 09/15/16) codeine (Intermediate, VOMITING 09/15/16) Pertinent Lab Results: Laboratory Tests 02/28/17 0621: CBC w Diff NO MAN DIFF REQ, RBC 4.91, MCV 80.5, MCH 26.2 L, RDW 13.8, MPV 8.2, Gran % 67.2, Lymphocytes % 21.1, Monocytes % 9.6 H, Eosinophils % 1.7, Basophils % 0.4, Absolute Granulocytes 7.8 H, Absolute Lymphocytes 2.4, Absolute Monocytes 1.1 H, Absolute Eosinophils 0.2, Absolute Basophils 0, PUBS MCHC 32.6 L, Hepatitis A IgM Ab NONREACTIVE, Hep Bs Antigen NONREACTIVE, Hep B Core IgM Ab Conf NONREACTIVE, Hepatitis C Antibody REACTIVE H, HIV 1&2 Ab Western Blot NONREACTIVE 02/27/17 0738: PT 12.6 H, INR 1.20 H, CBC w Diff NO MAN DIFF REQ, RBC 4.83, MCV 80.0, MCH 26.3 L, RDW 13.7, MPV 8.0, Gran % 69.0, Lymphocytes % 20.2 L, Monocytes % 8.9, Eosinophils % 1.5, Basophils % 0.4, Absolute Granulocytes 8.5 H, Absolute Lymphocytes 2.5, Absolute Monocytes 1.1 H, Absolute Eosinophils 0.2, Absolute Basophils 0.1, PUBS MCHC 32.8 L 02/26/174: Urine Opiates Screen 2403.00 H, Methadone Screen > 735 H, Barbiturate Screen < 60, Ur Phencyclidine Scrn < 6.00, Amphetamines Screen > 1450 H, U Benzodiazepines Scrn > 800 H, Urine Cocaine Screen < 50, Urine Cannabis Screen 75.70 H, Urine Color YEL, Urine Clarity CLEAR, Urine pH 5.5, Ur Specific [place] 1.025, Urine Protein NEG, Urine Ketones NEG, Urine Nitrite NEG, Urine Bilirubin NEG, Urine Urobilinogen 0.2, Ur Leukocyte Esterase NEG, Ur Microscopic EXAM NOT REQUIRED, Urine Hemoglobin NEG, Urine Glucose NEG 02/26/172: Lactic Acid 1.0 02/26/17 1644: Anion Gap 13, Estimated GFR > 60, BUN/Creatinine Ratio 13.3, Glucose 97, Lactic Acid 0.7, Calcium 10.3 H, Total Bilirubin 0.7, AST 17, ALT 30, Alkaline Phosphatase 93, C-Reactive Prot, Quant > 9.0 H, Total Protein 7.5, Albumin 3.9, Globulin 3.6, Albumin/Globulin Ratio 1.1, Total PSA 0.98, CBC w Diff NO MAN DIFF REQ, RBC 4.90, MCV 80.1, MCH 26.0 L, RDW 13.3, MPV 7.4, Gran % 71.3, Lymphocytes % 20.4 L, Monocytes % 7.0, Eosinophils % 0.9, Basophils % 0.4, Absolute Granulocytes 9.3 H, Absolute Lymphocytes 2.7, Absolute Monocytes 0.9 H, Absolute Eosinophils 0.1, Absolute Basophils 0, PUBS MCHC 32.5 L, ESR [place] 45 H Microbiology 02/27 1836 URINE ROUT: Urine Culture - RES 02/27 0855 BLOOD: Blood Culture - RECD 02/27 0750 BLOOD: Blood Culture - CAN Cancelled: Quantity not sufficient for both blood culture bottles. 02/27 07 BLOOD: Blood Culture - RECD 02/27 0550 LOWER RESP: Respiratory Culture - COLB 02/27 550 LOWER RESP: Gram Stain - COLB Disposition Summary Disposition Principal Diagnosis: 1. Thoracic paraspinal mass/abscess 2. Vertebral osteomyelitis Additional Diagnosis: 4. Lower back pain 5. Polysubstance abuse Discharge Disposition: other general hospital Discharge Instructions General Discharge Information Code Status: Full Code Patient's Diet: Regular diet Patient's Activity: Self-limited activity Follow-Up Instructions/Appts: 1. Please follow up with your primary care doctor within a week of discharge. Medications at Discharge Discharge Medications: Continue taking these medications: Alprazolam (Alprazolam) 1 MG TABLET 1 Tablet ORAL THREE TIMES A DAY NEEDED Qty = 180 Dextroamphetamine/Amphetamine (Dextroamp-Amphetamin 20 MG Tab) 20 MG TABLET 1 Tablet ORAL Every night Qty = 90 Oxycodone HCl (Oxycodone HCl) 30 MG TABLET 1 Tablet ORAL GIVE ONCE Naproxen Sodium (Aleve) 220 MG TABLET 1 Tablet ORAL DAILY Copies To: RAGINI PATEL,BENJAMÍN
[2017-02-28 14:35] VITALS: BP 120/78
--- NOTE | 2017-02-28 16:09 | PN- Infect Dx ---
Subjective Subjective: Afebrile. He continues to complain of right sided back pain Objective Last 24 Hrs of Vital Signs/I&O Vital Signs Date Time Temp Pulse Resp B/P B/P Pulse O2 O2 Flow FiO2 Mean Ox Delivery Rate 02/28 1435 97.9 95 20 120/78 98 02/28 0635 97.8 80 20 132/66 95 Room Air 02/27 2159 97.1 79 20 130/80 98 Room Air 02/27 1639 98.1 92 20 140/82 98 Room Air Intake & Output 02/28 1600 02/28 0800 02/28 0000 Intake Total 0 350 Output Total Balance 0 350 Intake, IV 0 Intake, Oral 0 350 Number 0 Bowel Movements Physical Exam Other Physical Findings: He appears comfortable in no acute distress Exam is without change Results Last 24 Hours of Lab Results: Laboratory Tests 02/28 621 Hematology CBC w Diff NO MAN DIFF REQ WBC (4.8 - 10.8 /CUMM) 11.6 H RBC (4.70 - 6.10 /CUMM) 4.91 Hgb (14.0 - 18.0 G/DL) 12.9 L Hct (42 - 52 %) 39.5 L MCV (80.0 - 94.0 FL) 80.5 MCH (27.0 - 31.0 PG) 26.2 L RDW (11.5 - 14.5 %) 13.8 Plt Count (130 - 400 /CUMM) 374 MPV (7.4 - 10.4 FL) 8.2 Gran % (42.2 - 75.2 %) 67.2 Lymphocytes % (20.5 - 51.1 %) 21.1 Monocytes % (1.7 - 9.3 %) 9.6 H Eosinophils % (0 - 5 %) 1.7 Basophils % (0.0 - 2.0 %) 0.4 Absolute Granulocytes (1.4 - 6.5 /CUMM) 7.8 H Absolute Lymphocytes (1.2 - 3.4 /CUMM) 2.4 Absolute Monocytes (0.10 - 0.60 /CUMM) 1.1 H Absolute Eosinophils (0.0 - 0.7 /CUMM) 0.2 Absolute Basophils (0.0 - 0.2 /CUMM) 0 PUBS MCHC (33.0 - 37.0 G/DL) 32.6 L Serology Hepatitis A IgM Ab (NONREACTIVE) NONREACTIVE Hep Bs Antigen (NONREACTIVE) NONREACTIVE Hep B Core IgM Ab Conf (NONREACTIVE) NONREACTIVE Hepatitis C Antibody (NONREACTIVE) REACTIVE H HIV 1&2 Ab Western Blot (NONREACTIVE) NONREACTIVE Last 24 Hours of [facility] Results: Blood cultures 2 February 27 negative Urine culture February 27 negative Recent Imaging Studies: MRI of the cervical, thoracic and lumbar spine reveals a paravertebral soft tissue fullness on the right at the level of T9-T10, which demonstrates enhancement with some areas of serpiginous low T1 signal, consistent with a phlegmon with developing abscess; abnormal signal in the right aspect of the vertebral bodies of T9-T10 consistent with developing osteomyelitis Assessment/Plan Impression: Presumed osteomyelitis with a paraspinal abscess involving the T9-T10 area, presumably related to his active IV drug abuse. He will need drainage of this process, and he is apparently being transferred to [place] as the CAT scan at [place] is not functioning. The most likely pathogen is Staph aureus, but, as he is stable, he should continue to be followed off antibiotics pending aspiration/drainage. Suggestion: 1. Await transfer to [place] for a CT-guided aspiration/drainage of the right paraspinal process 2. Will need GI evaluation at some point regarding his Hepatitis C 3. Continue to follow off antibiotics pending above
== END 2017-02-28 18:20 | disposition short-term general hospital (02) | DRG 346 ==
LOC: ERH 16:18 → 2NA 21:29 → ERHI 21:29 → ENRESERV 23:28 → 2NA 02-27 00:14 → ENPENDDIS 02-28 10:30 → 2NA 02-28 18:20
PROVIDERS: Dermatology; Emergency Medicine; Preventive Medicine Public Health & General Preventive Medicine; ADMIT Student in an Organized Health Care Education/Training Program
DX: M48.8X4 Other specified spondylopathies, thoracic region (principal); F11.20 Opioid dependence, uncomplicated; B18.2 Chronic viral hepatitis C; F17.200 Nicotine dependence, unspecified, uncomplicated; F90.9 Attention-deficit hyperactivity disorder, unspecified type; Z86.19 Personal history of other infectious and parasitic diseases; F19.10 Other psychoactive substance abuse, uncomplicated; M46.24 Osteomyelitis of vertebra, thoracic region
CPT/HCPCS: 2NASP; 72142; 72147; 72149; ERO; 36415; 72156; 72157; 72158; 74176; 80307; 81003; 87040; 87070; 87086; 87389; 96374; 96375; A9579; J1885; J2405